=== PATIENT | male | born 1965 | race Caucasian/White ===

== ENCOUNTER 2019-10-13 19:12 | Inpatient (IN) | payer BC, SELFPAY ==
--- NOTE | 2019-10-13 20:56 | RAD REPORT ---
EXAM DESCRIPTION: RAD - Femur Left - 10/13/2019 8:48 pm CLINICAL HISTORY: Fall, left hip pain COMPARISON: None. FINDINGS: Left femoral head and neck findings are separately detailed. Below the lesser trochanter f emur is intact. No knee joint acute finding. No air or foreign body in the soft tissues. IMPRESSION: Below the lesser trochanter level the femur is intact. Proximal femur is separately detailed.
--- NOTE | 2019-10-13 20:56 | RAD REPORT ---
EXAM DESCRIPTION: RAD - Pelvis - 10/13/2019 8:17 pm CLINICAL HISTORY: Fall, pelvic pain, hip pain COMPARISON: None. TECHNIQUE: AP imaging of the pelvis was obtained. FINDINGS: No fracture of the bony pelvis. SI joints and pubic symphysis show no suspicious findings. Lower lumbar degenerative change present. Left hip findings are separately detailed. IMPRESSION: No fracture of the bony pelvis. Left femur finding separately detailed.
--- NOTE | 2019-10-13 20:58 | RAD REPORT ---
EXAM DESCRIPTION: RAD - Hip Left 2 View - 10/13/2019 8:17 pm CLINICAL HISTORY: Fall, left hip pain COMPARISON: None. FINDINGS: AP and cross-table lateral views were obtained. Left femoral neck fracture is present. The neck is not optimally visualized to allow full assessment of the fracture pattern. No gross evidence for intertrochanteric involvement. No pathologic bone process. No significant soft tissue finding. IMPRESSION: Left femoral neck is fractured. Positioning does not allow optimal assessment of any pos sible intertrochanteric involvement.
--- NOTE | 2019-10-13 21:02 | ER ---
Nurse's Notes [facility] Name: Abdoul Ferguson Age: 54 yrs Sex: Male : 1965 Arrival Date: 10/13/2019 Time: 19:12 Bed 23 Private MD: Diagnosis: Fracture of unspecified part of neck of left femur Presentation: 10/13 19:13 Presenting complaint: EMS states: patient was walking when he fell on his left hip and mg2 hit the pavement. BP 188/120. Transition of care: patient was not received from another setting of care. Onset of symptoms was October 13, 2019. Risk Assessment: Do you want to hurt yourself or someone else? Patient reports no desire to harm self or others. Initial Sepsis Screen: Does the patient meet any 2 criteria? No. Patient's initial sepsis screen is negative. Does the patient have a suspected source of infection? No. Patient's initial sepsis screen is negative. Care prior to arrival: None. 19:13 Method Of Arrival: EMS: [facility] mg2 19:13 Acuity: BRUNA 3 mg2 Historical: - Allergies: 19:17 No Known Allergies; mg2 - Home Meds: 19:17 None [Active]; mg2 - PMHx: 19:17 None; mg2 - PSHx: 19:17 None; mg2 - Immunization history:: Flu vaccine is not up to date. - Social history:: Smoking status: Patient/guardian denies using tobacco, Patient uses alcohol, Patient/guardian denies using street drugs, IV drugs. - Ebola Screening: : No symptoms or risks identified at this time. Screenin:17 Abuse screen: Denies threats or abuse. Denies injuries from another. Nutritional mg2 screening: No deficits noted. Tuberculosis screening: No symptoms or risk factors identified. Fall Risk Fall in past 12 months (25 points). Assessment: 19:18 General: Appears in no apparent distress. comfortable, Behavior is calm, cooperative. mg2 Pain: Complains of pain in left hip Pain does not radiate. Pain currently is 7 out of 10 on a pain scale. Quality of pain is described as aching. Neuro: Level of Consciousness is awake, alert, obeys commands, Oriented to person, place, time, situation. Cardiovascular: Capillary refill < 3 seconds Patient's skin is warm and dry. Respiratory: Airway is patent Respiratory effort is even, unlabored, Respiratory pattern is regular, symmetrical. GI: No signs and/or symptoms were reported involving the gastrointestinal system. : No signs and/or symptoms were reported regarding the genitourinary system. EENT: No signs and/or symptoms were reported regarding the EENT system. Derm: Skin is intact, is healthy with good turgor, Skin is pink, warm \T\ dry. normal. Musculoskeletal: Circulation, motion, and sensation intact. Capillary refill < 3 seconds, Reports pain in left knee. 22:29 Reassessment: Nurse will call me back to receive the report. mg2 Vital Signs: 19:16 Pulse 79; Resp 18; Temp 97.8(O); Pulse Ox 100% on R/A; Weight 124.74 kg; Height 6 ft. 4 mg2 in. (193.04 cm); Pain 7/10; 19:17 BP 176 / 109; mg2 20:30 BP 170 / 78; Pulse 97; Resp 18; Temp 98; Pulse Ox 100% on R/A; mg2 21:30 BP 165 / 99; Pulse 89; Resp 18; Pulse Ox 100% on R/A; mg2 21:30 BP 170 / 100; Pulse 93; Resp 17; Pulse Ox 100% on R/A; mg2 19:16 Body Mass Index 33.47 (124.74 kg, 193.04 cm) mg2 ED Course: 19:12 Patient arrived in ED. mg2 19:15 Triage completed. mg2 19:16 Shelley Hernandez FNP is PHCP. nh 19:16 Milan Lott MD is Attending Physician. nh 19:16 Arm band placed on. mg2 19:25 Patient has correct armband on for positive identification. mg2 19:25 No provider procedures requiring assistance completed. mg2 20:01 Shin Araujo, RN is Primary Nurse. mg2 20:17 Hip Left 2 View XRAY In Process Unspecified. EDMS 20:17 Pelvis XRAY In Process Unspecified. EDMS 20:50 Femur Left XRAY In Process Unspecified. EDMS 20:58 Milan Lott MD is Hospitalizing Provider. nh 20:58 Milan Lott MD is Hospitalizing Provider. nh 21:00 Initial lab(s) drawn, by me, sent to lab. Inserted saline lock: 22 gauge in right tr5 antecubital area, using aseptic technique. 21:26 Chest Single View In Process Unspecified. EDMS 22:31 Patient admitted, IV remains in place. mg2 Administered Medications: No medications were administered Outcome: 21:01 Decision to Hospitalize by Provider. tx 23:05 Patient left the ED. mg2 Signatures: Dispatcher [employer] EDMS Shelley Hernandez, JIGMAKER JIGMAKER tx Shin Araujo RN RN mg2 Joshua Bryant RN RN tr5 Corrections: (The following items were deleted from the chart) 20:39 19:13 Acuity: BRUNA 4 mg2 mg2 22:31 19:25 Patient did not have IV access during this emergency room visit. mg2 mg2 22:32 21:30 Pulse 93bpm; Resp 17bpm; Pulse Ox 100% RA; mg2 mg2
--- NOTE | 2019-10-13 21:02 | EDPHYS ---
Physician Documentation [facility] Name: Abdoul Ferguson Age: 54 yrs Sex: Male : 1965 Arrival Date: 10/13/2019 Time: 19:12 Bed 23 Private MD: ED Physician Milan Lott HPI: 10/13 20:54 This 54 yrs old Male presents to ER via EMS with complaints of Hip Pain. nh 20:54 The patient or guardian reports decreased range of motion, deformity, an injury, pain. nh sustained from a fall, while walking, the left lower extremity is shortened, The patient is not able to ambulate. Patient is not able to bear weight. There is no radiation of the patient's discomfort. The complaints affect the left hip. Onset: The symptoms/episode began/occurred acutely, just prior to arrival. Modifying factors: The symptoms are alleviated by nothing, the symptoms are aggravated by any movement, weight bearing. Associated signs and symptoms: Loss of consciousness: the patient experienced no loss of consciousness. Severity of symptoms: At their worst the symptoms were moderate, just prior to arrival, in the emergency department the symptoms are unchanged. The patient has not experienced similar symptoms in the past. The patient has not recently seen a physician. Historical: - Allergies: 19:17 No Known Allergies; mg2 - Home Meds: 19:17 None [Active]; mg2 - PMHx: 19:17 None; mg2 - PSHx: 19:17 None; mg2 - Immunization history:: Flu vaccine is not up to date. - Social history:: Smoking status: Patient/guardian denies using tobacco, Patient uses alcohol, Patient/guardian denies using street drugs, IV drugs. - Ebola Screening: : No symptoms or risks identified at this time. ROS: 20:54 Constitutional: Negative for fever, chills, and weight loss, Eyes: Negative for injury, nh pain, redness, and discharge, ENT: Negative for injury, pain, and discharge, Neck: Negative for injury, pain, and swelling, Cardiovascular: Negative for chest pain, palpitations, and edema, Respiratory: Negative for shortness of breath, cough, wheezing, and pleuritic chest pain, Abdomen/GI: Negative for abdominal pain, nausea, vomiting, diarrhea, and constipation, Back: Negative for injury and pain, : Negative for injury, bleeding, discharge, and swelling, Skin: Negative for injury, rash, and discoloration, Neuro: Negative for headache, weakness, numbness, tingling, and seizure, Psych: Negative for depression, anxiety, suicide ideation, homicidal ideation, and hallucinations, Allergy/Immunology: Negative for hives, rash, and allergies. 20:54 MS/extremity: Positive for injury or acute deformity, pain, swelling, tenderness. Exam: 20:54 Constitutional: This is a well developed, well nourished patient who is awake, alert, nh and in no acute distress. Head/Face: Normocephalic, atraumatic. Eyes: Pupils equal round and reactive to light, extra-ocular motions intact. Lids and lashes normal. Conjunctiva and sclera are non-icteric and not injected. Cornea within normal limits. Periorbital areas with no swelling, redness, or edema. ENT: Nares patent. No nasal discharge, no septal abnormalities noted. Tympanic membranes are normal and external auditory canals are clear. Oropharynx with no redness, swelling, or masses, exudates, or evidence of obstruction, uvula midline. Mucous membranes moist. Neck: Trachea midline, no thyromegaly or masses palpated, and no cervical lymphadenopathy. Supple, full range of motion without nuchal rigidity, or vertebral point tenderness. No Meningismus. Chest/axilla: Normal chest wall appearance and motion. Nontender with no deformity. No lesions are appreciated. Cardiovascular: Regular rate and rhythm with a normal S1 and S2. No gallops, murmurs, or rubs. Normal PMI, no JVD. No pulse deficits. Respiratory: Lungs have equal breath sounds bilaterally, clear to auscultation and percussion. No rales, rhonchi or wheezes noted. No increased work of breathing, no retractions or nasal flaring. Abdomen/GI: Soft, non-tender, with normal bowel sounds. No distension or tympany. No guarding or rebound. No evidence of tenderness throughout. Back: No spinal tenderness. No costovertebral tenderness. Full range of motion. Skin: Warm, dry with normal turgor. Normal color with no rashes, no lesions, and no evidence of cellulitis. Neuro: Awake and alert, GCS 15, oriented to person, place, time, and situation. Cranial nerves II-XII grossly intact. Motor strength 5/5 in all extremities. Sensory grossly intact. Cerebellar exam normal. Normal gait. 20:54 Musculoskeletal/extremity: Extremities: grossly normal except: noted in the left hip: pain, ROM: limited active range of motion due to pain, in the left hip, Circulation is intact in all extremities. Sensation intact. Weight bearing: is unable to bear weight. Vital Signs: 19:16 Pulse 79; Resp 18; Temp 97.8(O); Pulse Ox 100% on R/A; Weight 124.74 kg; Height 6 ft. 4 mg2 in. (193.04 cm); Pain 7/10; 19:17 BP 176 / 109; mg2 20:30 BP 170 / 78; Pulse 97; Resp 18; Temp 98; Pulse Ox 100% on R/A; mg2 21:30 BP 165 / 99; Pulse 89; Resp 18; Pulse Ox 100% on R/A; mg2 21:30 BP 170 / 100; Pulse 93; Resp 17; Pulse Ox 100% on R/A; mg2 19:16 Body Mass Index 33.47 (124.74 kg, 193.04 cm) mg2 MDM: 19:16 Patient medically screened. nh 20:54 Data reviewed: vital signs, nurses notes, lab test result(s), radiologic studies, I nh have discussed the patient's presentation/case with the attending Emergency Department Physician; and as a result, I will admit patient. Counseling: I had a detailed discussion with the patient and/or guardian regarding: the historical points, exam findings, and any diagnostic results supporting the discharge/admit diagnosis, lab results, radiology results, the need for further work-up and treatment in the hospital. Physician consultation: Hossein Hidalgo MD was called at 20:57, was contacted at 20:57, and will see patient tomorrow, would like admission per Dr. Lolis Krishna MD. 10/13 20:41 Order name: CBC with Diff mt 10/13 20:41 Order name: CMP mt 10/13 20:49 Order name: PT-INR mt 10/13 20:49 Order name: Ptt, Activated mt 10/13 21:21 Order name: Manual Differential EDMS 10/13 22:07 Order name: CBC with Automated Diff EDMS 10/13 22:07 Order name: CBC with Automated Diff EDMS 10/13 22:07 Order name: Comprehensive Metabolic Panel EDMS 10/13 22:07 Order name: Comprehensive Metabolic Panel EDMS 10/13 22:07 Order name: Magnesium EDMS 10/13 22:07 Order name: Magnesium EDMS 10/13 22:07 Order name: Phosphorus EDMS 10/13 22:08 Order name: Phosphorus EDMS 10/13 22:08 Order name: Protime (+INR) EDMS 10/13 19:22 Order name: Hip Left 2 View XRAY mt 10/13 19:22 Order name: Pelvis XRAY mt 10/13 19:22 Order name: Femur Left XRAY mt 10/13 20:41 Order name: IV Saline Lock; Complete Time: 21:01 mt 10/13 20:49 Order name: EKG - Nurse/Tech; Complete Time: 21:13 mt 10/13 20:54 Order name: Chest Single View EDMS 10/13 22:07 Order name: CONS Physician Consult EDMS 10/13 22:07 Order name: NPO EDMS 10/13 22:08 Order name: Protime (+INR) EDMS 10/13 22:08 Order name: PTT, Activated Partial Thromb EDMS 10/13 22:08 Order name: PTT, Activated Partial Thromb EDMS 10/13 22:09 Order name: Type and Screen EDMS 10/13 22:09 Order name: Type and Screen EDMS 10/13 22:41 Order name: Urine Dipstick--Ancillary (enter results) ar5 Administered Medications: No medications were administered Disposition: 10/14 07:26 Co-signature as Attending Physician, Milan Lott MD I agree with the assessment and kdr plan of care. Disposition: 10/13/19 21:01 Hospitalization ordered by Milan Lott for Observation. Preliminary diagnosis is Fracture of unspecified part of neck of left femur. - Bed requested for Telemetry/MedSurg (observation). - Status is Observation. mg2 - Condition is Stable. - Problem is new. - Symptoms are unchanged. UTI on Admission? No Signatures: Dispatcher [employer] EDMO Michelle Ye, RN RN Milan Lott MD MD [facility] Shelley Hernandez, X RAY PHYSICIAN X RAY PHYSICIAN mt Shin Araujo RN RN mg2 Corrections: (The following items were deleted from the chart) 10/13 20:54 20:50 Chest Pa And Lat (2 Views)+[email or web address].[email or web address] ordered. EDMS EDMS 22:10 21:01 Hospitalization Ordered by Milan Lott MD for Observation. Preliminary mw diagnosis is Fracture of unspecified part of neck of left femur. Bed requested for Telemetry/MedSurg (observation). Status is Observation. Condition is Stable. Problem is new. Symptoms are unchanged. UTI on Admission? No. nh 23:05 22:10 10/13/2019 21:01 Hospitalization Ordered by Milan Lott MD for Observation. mg2 Preliminary diagnosis is Fracture of unspecified part of neck of left femur. Bed requested for Telemetry/MedSurg (observation). Status is Observation. Condition is Stable. Problem is new. Symptoms are unchanged. UTI on Admission? No. mw
[2019-10-13 21:18] LABS: Protime INR 1.35
[2019-10-13 21:19] LABS: Absolute Lymphocytes (CBC) 1.6 K/uL (0.7-4.9); Basophils % 0.2 % (0-1.3); Hematocrit 28.5 % (39.6-49.0); Lymphocytes % 17.5 % (15.3-44.8); MPV 8.4 fL (7.6-11.3); RBC Red Blood Cell Count 4.47 M/uL (4.33-5.43)
[2019-10-13 21:28] LABS: Albumin 4.2 g/dL (3.4-5.0); Bilirubin Total 0.4 mg/dL (0.2-1.0); Potassium 3.4 mmol/L (3.5-5.1); Protein, Total 7.7 g/dL (6.4-8.2)
[2019-10-13 21:43] LABS: Anisocytosis 1+; Blood Morphology Comment NOTED (NOT SEEN); Hypochromasia 2+; Platelet Estimate ADEQ
[2019-10-13] MEDS ORDERED: ACETAMINOPHEN 500 MG TAB PO PRN (22:04)
[2019-10-13] MEDS ORDERED: ONDANSETRON 4 MG/2 ML VIAL IV PRN (22:04)
[2019-10-13 22:43] LABS: Urine Blood NEGATIVE (NEG); Urine Glucose NEGATIVE (NEG); Urine Protein NEGATIVE (NEG); Urine Specific Gravity 1.015 (1.005-1.030)
[2019-10-13] MEDS ORDERED: NA CHLORIDE 0.9% 1,000 ML IV SCH (23:00)
[2019-10-13 23:37] VITALS: BMI 32.2
[2019-10-14] MEDS: METOPROLOL TARTRATE 5 MG/5 ML INJ IV SCH ×5 (01:05→07:00)
[2019-10-14] MEDS ORDERED: CEFAZOLIN/SWI 1gm 1 GM/10 ML SYR ONE (01:14)
[2019-10-14] MEDS ORDERED: CEFAZOLIN SODIUM 1 GM/VIAL ONE (01:15)
[2019-10-14] MEDS ORDERED: NA CHLORIDE 0.9% 100 ML ONE (01:24)
[2019-10-14 02:28] LABS: Protime INR 1.21
[2019-10-14 02:34] LABS: RBC Red Blood Cell Count 4.01 M/uL (4.33-5.43)
[2019-10-14 02:36] LABS: Albumin 3.7 g/dL (3.4-5.0); Bilirubin Total 0.4 mg/dL (0.2-1.0); Magnesium 1.9 mg/dL (1.8-2.4); Phosphorus 3.4 mg/dL (2.5-4.9); Potassium 3.8 mmol/L (3.5-5.1)
[2019-10-14 02:37] LABS: Hematocrit 25.8 % (39.6-49.0); MPV 8.6 fL (7.6-11.3); RBC Red Blood Cell Count 4.09 M/uL (4.33-5.43)
[2019-10-14 02:52] LABS: Anisocytosis 1+; Blood Morphology Comment NOTED (NOT SEEN); Hypochromasia 2+; Platelet Estimate ADEQ; Polychromasia SLIGHT
[2019-10-14 03:01] LABS: Ferritin 4.9 ng/mL (26-388)
[2019-10-14] MEDS: HYDROMORPHONE HCL 1 MG/ML INJ IV PRN ×6 (03:10→23:42)
[2019-10-14] MEDS ORDERED: NA CHLORIDE 0.9% 250 ML ONE (04:22)
[2019-10-14] MEDS: CEFAZOLIN/NS 1gm 1 GM/50 ML BAG IVPB SCH ×2 (06:00)
[2019-10-14] MEDS ORDERED: METOPROLOL TARTRATE 5 MG/5 ML INJ IV SCH ×3 (07:00→08:00)
--- NOTE | 2019-10-14 07:44 | P.HP ---
Certification for Inpatient Patient admitted to: Inpatient With expected LOS: >2 Midnights Patient will require the following post-hospital care: None Practitioner: I am a practitioner with admitting privileges, knowledge of patient current condition, hospital course, and medical plan of care. Services: Services provided to patient in accordance with Admission requirements found in Title 42 Section 412.3 of the Code of Federal Regulations Patient History Date of Service: 10/13/19 Reason for admission: Status post left hip fracture/iron deficiency anemia History of Present Illness: Patient is a 54-year-old gentleman who came to the hospital after falling when getting out of his truck. Patient states that his foot slipped any landed on his hip. He started having pain. He was unable to get himself up. EMS was called he was brought to our hospital. In the ER he was found have a hemoglobin of 8.3. Patient denies any signs of bleeding. Patient also denies any chest pain or shortness of breath. He is very active and he has been in good state of health. He has never had any cardiac issues. She will be admitted to the hospital for possible hip surgery. Will repeat his hemoglobin and if his hemoglobin is stable then we will proceed with surgery. This does not seem like it is an active bleed as hemodynamically he is very stable. His blood pressure is elevated. He will need blood pressure control as well. Allergies No Known Allergies Allergy (Unverified 10/13/19 22:54) Home Medications: NK [No Home Meds] 10/13/19 - Past Medical/Surgical History Has patient received pneumonia vaccine in the past: No Diabetic: No Past Medical History: Patient denies medical history Past Surgical History: Patient denies surgical history - Family History Father Family History: Reviewed- Non-Contributory - Social History Smoking Status: Never smoker Alcohol use: No CD- Drugs: No Caffeine use: Yes Review of Systems 10-point ROS is otherwise unremarkable Physical Examination - Vital Signs Temperature: 99.0 F Blood Pressure: 183/101 Pulse: 88 Respirations: 18 Pulse Ox (%): 94 - Physical Exam General: Alert, In no apparent distress, Oriented x3 HEENT: Atraumatic, PERRLA, Mucous membr. moist/pink, EOMI, Sclerae nonicteric Neck: Supple, 2+ carotid pulse no bruit, No LAD, Without JVD or thyroid abnormality Respiratory: Clear to auscultation bilaterally, Normal air movement Cardiovascular: Regular rate/rhythm, Normal S1 S2, No murmurs Gastrointestinal: Normal bowel sounds, Soft and benign, Non-distended, No tenderness Musculoskeletal: No clubbing, No swelling, No contractures, No tenderness Integumentary: No rashes Neurological: Normal speech, Normal tone, Sensation intact, Cranial nerves 3-12 intact, Normal affect, Abnormal gait, Abnormal strength (Left hip-barely is able to move it. We have tried to I encouraged him to keep it immobile) Lymphatics: No axilla or inguinal lymphadenopathy - Studies Laboratory Data (last 24 hrs) 10/13/19 21:05: PT 15.8 H, INR 1.35, APTT 29.6 10/13/19 20:56: Sodium 135 L, Potassium 3.4 L, BUN 9, Creatinine 0.96, Glucose 113 H, Total Bilirubin 0.4, AST 18, ALT 18, Alkaline Phosphatase 61 10/13/19 20:56: WBC 9.4, Hgb 8.3 L, Hct 28.5 L, Plt Count 227 Assessment & Plan - Problems (Diagnosis) (1) Left displaced femoral neck fracture Current Visit: Yes Status: Acute (2) Uncontrolled hypertension Current Visit: Yes Status: Acute (3) Iron deficiency anemia Current Visit: Yes Status: Acute - Plan Plan: 1. Orthopedic evaluation 2. Repeat H&H 3. Anemia studies 4. IV Lopressor for strict blood pressure control 5. Patient with no chest pain or shortness of breath. His performance status is excellent. He is very active and asymptomatic. His EKG does show a left bundle-branch. He is anemic so will correct this but other than that he should be medically stable and low risk for any cardiopulmonary complications during surgery. Benefits of surgery outweigh the risks at this time. 6. GI and DVT prophylaxis Discharge Plan: Home Plan to discharge in: Greater than 2 days - Advance Directives Does patient have a Living Will: No Does patient have a Durable POA for Healthcare: No - Code Status/Comfort Care Code Status Assessed: Yes Code Status: Full Code Critical Care: No Time Spent Managing PTS Care (In Minutes): 55
--- NOTE | 2019-10-14 07:51 | P.PN ---
Date of Service: 10/14/19 Repeat hemoglobin came back at 7.4. Will transfuse 2 units of packed red blood cells. Patient with iron deficiency and B12 deficiency. Will get a CT of the abdomen and pelvis to further review any clinical findings to indicate why he may be anemic. There is some concern for a pathologic fracture as well.
[2019-10-14] MEDS ORDERED: CYANOCOBALAMIN 1000MCG/ML INJ IM ONE (08:00)
[2019-10-14] MEDS: CYANOCOBALAMIN 1,000 MCG TAB PO SCH (09:00)
[2019-10-14] MEDS: CEFAZOLIN/SWI 1gm 1 GM/10 ML SYR IVP SCH ×4 (09:10→23:43)
--- NOTE | 2019-10-14 09:29 | RAD REPORT ---
EXAM DESCRIPTION: RAD - Chest Single View - 10/13/2019 9:29 pm CLINICAL HISTORY: CHEST PAIN Chest pain. COMPARISON: Hip Left 2 View dated 10/13/2019 FINDINGS: Portable technique limits examination quality. The lungs are grossly clear. The heart is mildly enlarged in size. A hiatal hernia is likely present.
[2019-10-14 09:33] LABS: Hematocrit 26.7 % (39.6-49.0)
[2019-10-14] MEDS ORDERED: INFLUENZA VACCINE (for 3y+) 0.5 ML DOSE IMVAC ONE (10:00)
--- NOTE | 2019-10-14 11:23 | P.PN ---
Subjective Date of Service: 10/14/19 Primary Care Provider: none Chief Complaint: Status post left hip fracture/iron deficiency anemia Subjective: Other (Patient doing well. Pain under control.) Physical Examination - Vital Signs Temperature: 96.9 F Blood Pressure: 180/100 Pulse: 78 Respirations: 18 Pulse Ox (%): 96 - Physical Exam General: Alert, In no apparent distress, Oriented x3, Cooperative HEENT: Atraumatic Neck: Supple Respiratory: Clear to auscultation bilaterally, Normal air movement Cardiovascular: Normal pulses, Regular rate/rhythm Gastrointestinal: Normal bowel sounds, Soft and benign, Non-distended Musculoskeletal: No tenderness Integumentary: No erythema, No warmth, No cyanosis Neurological: Normal speech, Normal strength at 5/5 x4 extr, Normal tone, Normal affect - Studies Laboratory Data (last 24 hrs) 10/13/19 21:05: PT 15.8 H, INR 1.35, APTT 29.6 10/13/19 20:56: Sodium 135 L, Potassium 3.4 L, BUN 9, Creatinine 0.96, Glucose 113 H, Total Bilirubin 0.4, AST 18, ALT 18, Alkaline Phosphatase 61 10/13/19 20:56: WBC 9.4, Hgb 8.3 L, Hct 28.5 L, Plt Count 227 Medications List Reviewed: Yes Assessment & Plan Discharge Plan: Other (Inpatient rehab) Plan to discharge in: Greater than 2 days Physician Review Additional Text: Impression: Fall leading to left femur fracture Hypertension, uncontrolled Suspect chronic anemia with iron and B12 deficiency Suspect GERD with noted hiatal hernia on x-ray Obesity, BMI 32 Plan: Fall leading to left femur fracture: Case discussed with orthopedics. Will hold planned surgery today due to anemia. Patient will receive 2 units of packed red blood cells. After 1 unit of blood hemoglobin around 8.0. Will continue to monitor hemoglobin closely. Patient is iron and B12 deficient likely chronic. CT scan ordered of the abdomen to further evaluate. Patient likely with underlying chronic GERD. Hiatal hernia noted on x-ray. Will start PPI. Cardiology consulted for cardiac clearance. Will keep the patient NPO after midnight as surgery is likely anticipated for tomorrow. Patient would benefit with inpatient rehab after surgery. Will monitor hemoglobin closely. If this continues to be a problem will need to consult GI. No GI coverage today. Patient will require EGD and colonoscopy in the future. Will monitor patient closely. Hypertension, uncontrolled: Will add blood pressure medication for better control. Suspect chronic anemia with iron and B12 deficiency: Patient will get transfused. After 1 unit hemoglobin around 8. Patient to get 1 more unit. Continue to monitor hemoglobin closely. Will start IV iron and B12 supplementation. Suspect GERD with noted hiatal hernia on x-ray: CT scan ordered. Will further address. Will start PPI. Obesity, BMI 32: Will address lifestyle modification education. Time Spent Managing Pts Care (In Minutes): 55
--- NOTE | 2019-10-14 12:33 | RAD REPORT ---
EXAM DESCRIPTION: CTAbdomen Pelvis W Contrast - 10/14/2019 12:25 pm CLINICAL HISTORY: Abdominal pain. iron deficiency anemia/concern for pathologic fx COMPARISON: Hip Left 2 View dated 10/13/2019; Femur Left dated 10/13/2019 TECHNIQUE: Biphasic CT imaging of the abdomen and pelvis was performed with 100 ml non-ionic IV cont rast. All CT scans are performed using dose optimization technique as appropriate and may include automated exposure control or mA/KV adjustment according to patient size. FINDINGS: Linear opacities in both lung bases likely represent subsegmental atelectasis.Moderate to large hiatal hernia. Mild fatty liver. Small low-density lesion is seen in the inferior right lobe measuring 13 mm. No int ra or extrahepatic biliary dilatation. The spleen, adrenal glands and kidneys are within normal limit s. Pancreas is grossly unremarkable. No pancreatic ductal dilatation. No bowel obstruction, free air, free fluid or abscess. The appendix is normal. No evidence of signi ficant lymphadenopathy. Fracture proximal left femur is identified. IMPRESSION: Proximal left femur fracture. No aggressive finding in the abdomen or pelvis. Moderate hiatal hernia with atelectasis in both lung bases.
[2019-10-14] MEDS: METOPROLOL TARTRATE 5 MG/5 ML INJ IV PRN (12:43)
[2019-10-14] MEDS: SOD FERRIC GLUC COMPLX/SUCROSE 125 MG in NA CHLORIDE 0.9% 100 ML IV SCH (12:43)
[2019-10-14] MEDS: NA CHLORIDE 0.9% 1,000 ML IV SCH (12:43)
[2019-10-14] MEDS: FUROSEMIDE 20 MG/ 2ML VIAL IV SCH (18:19)
--- NOTE | 2019-10-14 18:46 | CON ---
Date of Consultation: 10/14/2019 Reason For Consultation: Left hip pain. History Of Present Illness: Abdoul is a 54-year-old male who presented to the ER last night with left hip pain after sustaining a fall onto his left side. In the emergency room, he had x-rays, which dem onstrated a displaced left femoral neck fracture, also noted to have profound anemia with hemoglobin of 8. He was admitted to the hospitalist service and was consulted with further evaluation and treat ment. Denies any other musculoskeletal complaints. At this time, he denies any prior left hip pain. He denies any use of assistive devices prior to the fall. He denies any prior hematochezia or hemo ptysis. He does report occasional dark stools which he thought was secondary to drinking coffee. Past Medical History: Includes hypertension. Past Surgical History: None. Medications: Per medication reconciliation. Physical Examination: General: No apparent distress. HEENT: Normocephalic, atraumatic. Neck: Supple. Cardiovascular: Brisk cap refill to all digits. Chest: Nonlabored breathing. Abdomen: Nondistended. Psychiatric: Responsive to exam. Musculoskeletal: Left lower extremity pain with range of motion of the left hip. Tenderness to palp ation of the left hip. No tenderness to palpation of the knee or ankle. Neurovascularly intact dist ally. Right lower extremity functional range of motion without pain. No gross deformities. No obvi ous dislocations. Bilateral upper extremities functional range of motion. No pain. No gross deform ities. No obvious dislocations. Diagnostic Studies: X-rays: X-rays in the cast demonstrated a displaced left femoral neck fracture. Assessment And Plan: Mr. Ferguson is a 54-year-old male with a left displaced femoral neck fracture an d recently diagnosed anemia. Patient underwent blood transfusion today secondary to repeat hemoglobi n below 8. We will follow up his hemoglobin and after transfusion, he had a CAT scan of his abdomen which was negative for any significant acute abnormalities. Once cleared by the medical team and Car diology, we will proceed with left hip hemiarthroplasty. I discussed with the patient at length risk s and benefits associated with the procedure and he expressed understanding. We will proceed with le ft hip hemiarthroplasty once cleared. CV/MODL Voice ID: [id number] Report ID: [id number]
[2019-10-14 19:25] LABS: Hematocrit 28.2 % (39.6-49.0)
[2019-10-14] MEDS: lisinopriL 10 MG TAB PO SCH (20:28)
[2019-10-14] MEDS: METOPROLOL TAR 50 MG TAB PO SCH (20:28)
--- NOTE | 2019-10-14 23:58 | CON ---
Patient admitted on 10/13/[address] Au. Reason For Consultation: Cardiac clearance for hip fracture. History Of Present Illness: Mr. Ferguson is a 54-year-old white male. He has no previous past medical history whatsoever, came in after a fall, was found to have a fracture. There is a plan for surgery in the morning. Patient denied syncope. He denied any chest pain, shortness of breath, nausea, vom iting, diaphoresis, PND, orthopnea, pedal edema, palpitations, or syncope. Past Medical History: Negative. Allergies: NONE. Review of Systems: Negative. Social History: Negative. Family History: Negative. Medications: At home are none. Physical Examination: Vital Signs: Showed blood pressure is 195/106. HEENT: Negative. Neck: Supple without any lymphadenopathy, JVD, thyromegaly, or bruit. Chest: Clear to auscultation and percussion. Cardiac: Revealed a regular rhythm and rate without any murmurs, gallops, or rubs. Abdomen: Benign. Extremities: Revealed no clubbing, cyanosis, or edema. Diagnostic Data: Showed a hemoglobin of 7.4, otherwise everything was normal. Impression And Plan: This is a patient with no previous past medical history but he obviously has si gnificant hypertension. He is now on lisinopril and is getting metoprolol 5 mg IV q.6 hours as neede d, also Lasix had been added. He is on Lovenox for DVT prophylaxis. This is being held because of h is severe anemia. Apparently, he has no history of anemia. I did not know he was anemic, but his he moglobin is 7.4. He is receiving blood transfusion as well as iron. His workup is consistent with i milka deficiency anemia. From a cardiac standpoint, he is clear. His EKG is unremarkable. He has no clinical evidence of CHF, CAD by history or by examination. I will be available for questions if the need arises but his blood pressure needs to be better controlled, his hemoglobin need to improve. Jameel e needs to have an anemia workup which include Hematology consult and definitely a colonoscopy and an endoscopy down the road. CAR/LEV Voice ID: [id number] Report ID: [id number]
[2019-10-15] MEDS ORDERED: METOPROLOL TARTRATE 5 MG/5 ML INJ IV STA (02:12)
[2019-10-15] MEDS: HYDROMORPHONE HCL 1 MG/ML INJ IV PRN ×2 (04:55→18:47)
[2019-10-15] MEDS: METOPROLOL TARTRATE 5 MG/5 ML INJ IV PRN (05:00)
[2019-10-15] MEDS: CEFAZOLIN/SWI 1gm 1 GM/10 ML SYR IVP SCH ×2 (05:25→12:00)
[2019-10-15 06:04] LABS: Potassium 3.7 mmol/L (3.5-5.1)
[2019-10-15] MEDS ORDERED: KCL 20 MEQ/100 mL IVPB 20 MEQ/100 ML BAG IV SCH (07:00)
[2019-10-15 07:13] LABS: Absolute Lymphocytes (CBC) 0.8 K/uL (0.7-4.9); Basophils % 0.6 % (0-1.3); Hematocrit 27.8 % (39.6-49.0); Lymphocytes % 8.5 % (15.3-44.8); MPV 8.5 fL (7.6-11.3)
[2019-10-15] MEDS: PANTOPRAZOLE 40MG TABLET PO SCH (07:30)
[2019-10-15] MEDS: NA CHLORIDE 0.9% 1,000 ML IV SCH (08:00)
[2019-10-15] MEDS: METOPROLOL TAR 50 MG TAB PO SCH ×3 (08:04→20:41)
[2019-10-15] MEDS: CYANOCOBALAMIN 1,000 MCG TAB PO SCH (08:05)
[2019-10-15] MEDS ORDERED: Ringers Lactate 1,000 ML IV ONE ×2 (08:40→11:13)
[2019-10-15] MEDS ORDERED: CEFAZOLIN/SWI 1gm 1 GM/10 ML SYR ONE (08:51)
[2019-10-15] MEDS ORDERED: BUPIVACA 0.5%/EPI 0.0005%/PF 30 ML VIAL ONE (08:55)
[2019-10-15] MEDS: lisinopriL 10 MG TAB PO SCH ×3 (09:00→20:40)
[2019-10-15] MEDS ORDERED: METOPROLOL TARTRATE 5 MG/5 ML INJ IV ONE (09:00)
[2019-10-15] MEDS ORDERED: TRANEXAMIC ACID 1,000 MG in NA CHLORIDE 0.9% 50 ML IV ONE ×4 (09:00)
[2019-10-15] MEDS ORDERED: SUCCINYLCHOLINE 20 MG/ML (10 ML) IV ONE (09:08)
[2019-10-15] MEDS ORDERED: PROPOFOL 200 MG/20 ML VIAL IV ONE (09:10)
[2019-10-15] MEDS ORDERED: FENTANYL CITR 250 MCG/5 ML ONE (09:10)
[2019-10-15] MEDS ORDERED: ROCURONIUM 50 MG/5 ML VIAL IV ONE ×2 (09:10→10:54)
[2019-10-15] MEDS ORDERED: MIDAZOLAM HCL 2 MG/2 ML INJ ONE (09:11)
--- NOTE | 2019-10-15 09:42 | P.PN ---
Subjective Date of Service: 10/15/19 Primary Care Provider: none Chief Complaint: Status post left hip fracture/iron deficiency anemia Subjective: Other (Patient doing well. Patient NPO for anticipated surgery today.) Physical Examination - Vital Signs Temperature: 96.9 F Blood Pressure: 160/100 Pulse: 74 Respirations: 18 Pulse Ox (%): 94 - Physical Exam General: Alert, In no apparent distress, Oriented x3, Cooperative HEENT: Atraumatic Neck: Supple Respiratory: Clear to auscultation bilaterally, Normal air movement Cardiovascular: Normal pulses, Regular rate/rhythm Gastrointestinal: Normal bowel sounds, No rebound, No guarding Musculoskeletal: Other (Patient reports some pain to the hip this morning.) Integumentary: Other (No significant edema noted.) - Studies Medications List Reviewed: Yes Assessment & Plan Discharge Plan: Home Plan to discharge in: Greater than 2 days Physician Review Additional Text: Impression: Fall leading to left femur fracture Hypertension, uncontrolled Suspect chronic anemia with iron and B12 deficiency Suspect GERD with noted hiatal hernia on CT Obesity, BMI 32 Plan: Fall leading to left femur fracture: Patient has been cleared by cardiology. Case discussed with orthopedics yesterday. Hemoglobin al stable after 2 units of blood given. Anticipate surgery today. CT scan of the abdomen revealed no significant GI related issue. Hiatal hernia was noted on PPI. Will continue to monitor hemoglobin closely. Hypertension, uncontrolled: Lisinopril added for better blood pressure control. Will continue to adjust medication. Suspect chronic anemia with iron and B12 deficiency: Patient has received 2 units of blood. Hemoglobin now stable. Will continue with IV iron and B12 supplementation. Patient will require EGD and colonoscopy as an outpatient with GI workup. Suspect GERD with noted hiatal hernia on CT: CT revealed hiatal hernia. PPI started. Obesity, BMI 32: Will address lifestyle modification education. Time Spent Managing Pts Care (In Minutes): 55
[2019-10-15] MEDS ORDERED: TRAMADOL HCL 50 MG TAB PO PRN (09:44)
[2019-10-15] MEDS ORDERED: NEOSTIGMINE 1 MG/ML -5 ML ONE (11:33)
[2019-10-15] MEDS ORDERED: GLYCOPYRROLATE 0.2 MG/ML SYR ONE (11:46)
--- NOTE | 2019-10-15 11:49 | P.BOP ---
Preoperative diagnosis: left femoral neck fracture Postoperative diagnosis: same Primary procedure: left hip hemiarthroplasty [place]: NONE,NONE Estimated blood loss: 100 cc Specimen: left femoral head Findings: see dictation Anesthesia: General Complications: None Implants: size 14 Biomet RPP press fit stem, Size 55 Bipolar shell, 28mm + 3 head Fluids & blood products: per anesthesia record Transferred to: Recovery Room Condition: Good
[2019-10-15] MEDS ORDERED: DOCUSATE NA 100 MG CAP PO PRN (12:02)
[2019-10-15] MEDS ORDERED: KETOROLAC 30 MG/ML INJ ONE (12:17)
[2019-10-15] MEDS: SOD FERRIC GLUC COMPLX/SUCROSE 125 MG in NA CHLORIDE 0.9% 100 ML IV SCH (13:19)
[2019-10-15] MEDS: CEFAZOLIN/SWI 2gm 2 GM/20 ML SYR IVP SCH ×2 (13:20→18:00)
--- NOTE | 2019-10-15 14:33 | RAD REPORT ---
EXAM DESCRIPTION: RAD - Pelvis - 10/15/2019 1:45 pm CLINICAL HISTORY: Left bipolar prosthesis placement COMPARISON: Pre-surgical imaging October 13 FINDINGS: Bipolar prosthesis in place left hip joint. No suspicious or unexpected finding.
--- NOTE | 2019-10-15 14:34 | RAD REPORT ---
EXAM DESCRIPTION: RAD - Hip Left 2 View - 10/15/2019 1:45 pm CLINICAL HISTORY: Left bipolar prosthesis placement, surgical repair of femur fracture COMPARISON: Pre-surgical October 13 imaging FINDINGS: AP and cross-table lateral views were obtained. Bipolar left hip prosthesis has been placed. No suspicious or unexpected bone or implant finding.
[2019-10-16] MEDS: HYDROMORPHONE HCL 1 MG/ML INJ IV PRN (00:44)
[2019-10-16] MEDS: CEFAZOLIN/SWI 2gm 2 GM/20 ML SYR IVP SCH (01:41)
[2019-10-16 05:54] LABS: Magnesium 1.9 mg/dL (1.8-2.4); Potassium 3.7 mmol/L (3.5-5.1)
[2019-10-16 05:57] LABS: Absolute Lymphocytes (CBC) 0.4 K/uL (0.7-4.9); Hematocrit 25.2 % (39.6-49.0); Lymphocytes % 5.2 % (15.3-44.8); MPV 8.6 fL (7.6-11.3); RBC Red Blood Cell Count 3.82 M/uL (4.33-5.43)
[2019-10-16] MEDS: NA CHLORIDE 0.9% 1,000 ML IV SCH (06:44)
[2019-10-16] MEDS: SOD FERRIC GLUC COMPLX/SUCROSE 125 MG in NA CHLORIDE 0.9% 100 ML IV SCH (08:25)
[2019-10-16] MEDS: PANTOPRAZOLE 40MG TABLET PO SCH (08:26)
[2019-10-16] MEDS: CYANOCOBALAMIN 1,000 MCG TAB PO SCH (08:26)
[2019-10-16] MEDS: METOPROLOL TAR 50 MG TAB PO SCH ×2 (08:26→20:10)
[2019-10-16] MEDS: HYDROCODONE/APAP 7.5/325 MG TAB PO PRN ×2 (08:26→16:27)
[2019-10-16] MEDS: lisinopriL 10 MG TAB PO SCH ×2 (08:29→20:10)
--- NOTE | 2019-10-16 08:29 | OP ---
Date of Procedure: 10/15/2019 Surgeon: Hossein Hidalgo MD Preoperative Diagnosis: Left femoral neck fracture. Postoperative Diagnosis: Left femoral neck fracture. Procedure Performed: Left hip hemiarthroplasty. Anesthesia: General endotracheal. Fluids: Per Anesthesia record. Estimated Blood Loss: 100 mL. Complications: None. Specimens: Left femoral head. Implants: Size 40 Biomet standard press-fit stem, size 55 x 28 mm bipolar acetabular cup, and a size 28 mm head. Indication For Procedure: Abdoul is a 54-year-old male who presented to the ER after sustaining a fall to his left side and subsequent left hip pain and inability to bear weight. X-rays of his left hip demonstrated a left displaced femoral neck fracture. The patient was found to be anemic on initial l ab workup. He underwent CAT scan of his abdomen which was negative for any significant mass lesion. He underwent blood transfusion yesterday and today. Description Of Procedure: After informed consent was obtained, the patient was identified in the pre operative holding area. The left lower extremity was marked. The patient was taken back to the oper ative room and transferred to the operating room in supine fashion, placed under general endotracheal anesthesia. He was then placed in the right lateral decubitus position with his extremities well pa dded. An axillary roll was placed. The left lower extremity was then prepped and draped in usual st erile fashion. A time-out was identified. Correct patient and procedure were confirmed and identifi ed. Patient had received his preoperative prophylactic antibiotics. Left lower extremity was then p repped and draped in usual sterile fashion. Approximately, a curvilinear incision was mad e centered over the greater trochanter with posterior approach to the left hip. Dissection was taken down to the tensor fascia pavithra, which was split and divided proximally and distally. A Charnley ret ractor was then introduced. Blunt dissection was then taken down. The short external rotators were tagged with a #5 Ethibond and removed off the greater trochanter. Posterior capsule was then identif ied. A T-shaped capsulotomy was performed and the capsule was tagged. Hematoma was evacuated using suction. Corkscrew was then used to removed the femoral head. A size 55 mm acetabular shell was elo cted. Trial implant was then placed and there was good overall fit. Next, attention was taken to th e proximal femur. Remaining capsule was then debrided off the proximal femur and the sharp edges wer e rongeured off the proximal femur. Cookie cutter was first placed followed by canal binder __. Proximal femur was then reamed with 1 mm sequential reamer from a size 7 mm to size 14 mm reamer which was then broached from a size 7 mm to size 14 mm broach with good overall fit. Calcar planer was then placed to debride any remaining sharp edges of the proximal femur . Next, size +3 mm head and a 5 mm shell were then placed and reduces good overall fit slightly. The trial componen ts were then removed. The wound was then irrigated thoroughly with normal saline under pulse lavage. A final 40 mm stem implant was then placed and trial implants were selected. There was good overal l reduction of the head and neck. There was good overall stability and leg length. Trial head and n kalee were removed and the final 55 mm bipolar shell and then placed. It was reduced again with overall good leg length and stability was noted with range of motion. The wound was then irriga frankie thoroughly with normal saline. The capsule was approximated using #5 Ethibond. The short grade school teacher al rotators were tagged back to the greater trochanter using a tunnel. Tensor fascia pavithra was approximated using a 0 Vicryl in interrupted fashion followed by the superficial fascia was appr oximated using 0 Vicryl. Subcutaneous tissues were approximated using 2-0 Vicryl. Skin was approxim ated using a stapler. A sterile dressing was applied. Patient was placed in abduction pillow, awake emilia, and transferred to PACU in stable condition. Postoperative Plan: He will be weightbearing as tolerated on the left lower extremity and posterior hip precautions will be followed. Physical therapy will be consulted . KAZ/LEV Voice ID: [id number] Report ID: [id number]
[2019-10-16] MEDS ORDERED: POTASSIUM CL SA 10 MEQ TAB PO ONE (09:00)
--- NOTE | 2019-10-16 09:41 | EKG ---
Test Date: 2019-10-13 Test Time: 21:10:34 Teletypesetter Monitor: TR MEASUREMENT RESULTS: Intervals: Rate: 84 MD: 152 QRSD: 130 QT: 418 QTc: 493 Reed: P: 53 MD: 152 QRS: 83 T: 3 INTERPRETIVE STATEMENTS: Normal sinus rhythm Nonspecific intraventricular block T wave abnormality, consider inferior ischemia Abnormal ECG No previous ECG available for comparison Electronically Signed On 10-16-19 09:41:04 HAZARDOUS WASTE MATERIAL TECHNICIAN by Lucas Serrano
--- NOTE | 2019-10-16 12:56 | P.PN ---
Subjective Date of Service: 10/16/19 Primary Care Provider: none Chief Complaint: s/p left hip hemiarthroplasty getting transfused 2 Units PRBCs; PT after transfusion Physical Examination - Vital Signs Temperature: 98.8 F Blood Pressure: 148/72 Pulse: 83 Respirations: 18 Pulse Ox (%): 94 - Physical Exam General: Alert, In no apparent distress Musculoskeletal: Other (LLE: dressing c/d/i; +EHL/FHL/GSC/TA; sensation grossly intact over dorsal and plantar foot) - Studies Medications List Reviewed: Yes Assessment And Plan - Plan Abdoul is a 54 yo male s/p left hip hemiarthroplasty POD#1 -PT to mobilize; WBAT LLE; posterior hip precautions -expected postoperative blood loss anemia on top of chronic anemia; to be transfused 2 Units PRBCs today -lovenox for DVT prophylaxis on hold and continue with mechanical prophylaxis
[2019-10-16] MEDS: FUROSEMIDE 20 MG/ 2ML VIAL IV SCH (13:43)
[2019-10-16 13:59] LABS: Anisocytosis 2+; Blood Morphology Comment NOTED (NOT SEEN); Elliptocytes 1+; Hypochromasia 2+; Platelet Estimate ADEQ; Platelets, Giant FEW; Urine White Blood Cell Casts OK
--- NOTE | 2019-10-16 14:09 | P.PN ---
Subjective Date of Service: 10/16/19 Primary Care Provider: none Chief Complaint: s/p left hip hemiarthroplasty Subjective: Doing well Physical Examination - Vital Signs Temperature: 98.8 F Blood Pressure: 178/63 Pulse: 77 Respirations: 18 Pulse Ox (%): 94 - Physical Exam General: Alert, In no apparent distress, Oriented x3, Cooperative HEENT: Atraumatic Neck: Supple Respiratory: Clear to auscultation bilaterally, Normal air movement Cardiovascular: Normal pulses, Regular rate/rhythm Gastrointestinal: Normal bowel sounds, Soft and benign, Non-distended, No masses , No rebound, No guarding Integumentary: No warmth, No cyanosis Neurological: Normal speech, Normal strength at 5/5 x4 extr, Normal tone, Normal affect - Studies Medications List Reviewed: Yes Assessment & Plan Discharge Plan: Home Plan to discharge in: Greater than 2 days Physician Review Additional Text: Impression: Fall leading to left femur fracture status post left hip hemiarthroplasty postop day 1 Hypertension, uncontrolled Suspect chronic anemia with iron and B12 deficiency Suspect GERD with noted hiatal hernia on CT Obesity, BMI 32 Plan: Fall leading to left femur fracture status post left hip hemiarthroplasty postop day 1: Patient has done well post operatively. Will continue to monitor closely. Physical therapy to be initiated today. Hemoglobin slightly low. Will provide 1 more unit of blood to maintain hemoglobin above 7.5. Continue DVT prophylaxis. Case discussed with orthopedics. pupil personnel services director report patient without insurance. Patient reports that he has 10 feet of stairs to climb to get to his house. Will continue to work with physical therapy until patient is safe to be discharged. Since the patient will likely not have the support of home health/physical therapy. I will turn the service over to Dr. Cardozo tomorrow. I will go over the plan of care with her. Anticipate discharge likely in the next 3 5 days. Hypertension, uncontrolled: Continue to adjust medication for better blood pressure control. Lisinopril added yesterday along with adjustment of metoprolol.. Suspect chronic anemia with iron and B12 deficiency: Patient will get 1 more unit of blood. That translate stent 3 units of blood since admission. Will continue with IV iron and B12 supplementation. Will monitor closely. Maintain hemoglobin above 7.5. Patient will require EGD and colonoscopy as an outpatient with GI workup. Suspect GERD with noted hiatal hernia on CT: CT revealed hiatal hernia. Continue PPI. Obesity, BMI 32: Will address lifestyle modification education. Time Spent Managing Pts Care (In Minutes): 55
[2019-10-16 16:23] LABS: Hematocrit 27.5 % (39.6-49.0)
[2019-10-17] MEDS: METOPROLOL TARTRATE 5 MG/5 ML INJ IV PRN ×2 (01:29→10:00)
[2019-10-17] MEDS: PANTOPRAZOLE 40MG TABLET PO SCH (05:09)
[2019-10-17] MEDS: LABETALOL 20 MG/4ML SYRINGE IV PRN ×2 (05:10→18:59)
[2019-10-17] MEDS: HYDROCODONE/APAP 7.5/325 MG TAB PO PRN (05:10)
[2019-10-17 05:51] LABS: Absolute Lymphocytes (CBC) 0.5 K/uL (0.7-4.9); Basophils % 0.7 % (0-1.3); Hematocrit 25.9 % (39.6-49.0); MPV 8.6 fL (7.6-11.3); RBC Red Blood Cell Count 3.84 M/uL (4.33-5.43)
[2019-10-17 05:55] LABS: Magnesium 1.9 mg/dL (1.8-2.4); Potassium 3.9 mmol/L (3.5-5.1)
[2019-10-17] MEDS ORDERED: POTASSIUM 25 MEQ EFFERV TAB PO ONE (09:00)
[2019-10-17] MEDS: CYANOCOBALAMIN 1,000 MCG TAB PO SCH (09:18)
[2019-10-17] MEDS: lisinopriL 10 MG TAB PO SCH ×2 (09:18→21:21)
[2019-10-17] MEDS: METOPROLOL TAR 50 MG TAB PO SCH ×2 (09:18→21:20)
[2019-10-17] MEDS: SOD FERRIC GLUC COMPLX/SUCROSE 125 MG in NA CHLORIDE 0.9% 100 ML IV SCH (09:19)
[2019-10-17] MEDS: ENOXAPARIN 40 MG/0.4 ML SQ SCH (09:19)
--- NOTE | 2019-10-17 13:14 | P.PN ---
Subjective Date of Service: 10/17/19 Primary Care Provider: none Chief Complaint: s/p left hip hemiarthroplasty Subjective: Ambulating, Working w/ PT pain controlled and improving Physical Examination - Vital Signs Temperature: 97.2 F Blood Pressure: 180/100 Pulse: 70 Respirations: 19 Pulse Ox (%): 96 - Physical Exam General: Alert, In no apparent distress Musculoskeletal: Other (LLE: dressing with minimal sanguinous drainage; +EHL/FHL /GSC/TA; sensation grossly intact distally) - Studies Medications List Reviewed: Yes Assessment And Plan - Plan Abdoul is a 54 yo male s/p left hip hemiarthroplasty POD#2 -PT to mobilize; WBAT LLE; posterior hip precautions -expected postoperative blood loss anemia on top of chronic anemia; continue to monitor h/h -lovenox for DVT prophylaxis Physician Review Additional Text: .
--- NOTE | 2019-10-17 15:16 | P.PN ---
Subjective Date of Service: 10/17/19 Primary Care Provider: none Chief Complaint: s/p left hip hemiarthroplasty Patient seen and examined at bedside with RN. Chart reviewed. Case discussed with orthopedic surgeon. This morning patient is doing well overall. No complaints to offer. Continues to work with physical therapy here in the hospital. Review of Systems 10-point ROS is otherwise unremarkable Physical Examination - Vital Signs Temperature: 97.2 F Blood Pressure: 180/100 Pulse: 70 Respirations: 19 Pulse Ox (%): 96 - Physical Exam General: Alert, In no apparent distress HEENT: Atraumatic, PERRLA, EOMI Neck: Supple, JVD not distended Respiratory: Clear to auscultation bilaterally, Normal air movement Cardiovascular: Regular rate/rhythm, Normal S1 S2 Gastrointestinal: Normal bowel sounds, No tenderness Musculoskeletal: No tenderness Integumentary: No rashes Neurological: Normal speech, Normal tone, Normal affect Lymphatics: No axilla or inguinal lymphadenopathy - Studies Medications List Reviewed: Yes Assessment And Plan - Plan Assessment and plan left femur fracture status post left hip hemiarthroplasty postop day 2: -status post ORIF of with orthopedic POD 2 -Continue DVT prophylaxis. -Case discussed with orthopedics. -managed services sales consultant report patient without insurance and also denied inpatient rehab. -Patient reports that he has 10 feet of stairs to climb to get to his house. Will continue to work with physical therapy until patient is safe to be discharged. Since the patient will likely not have the support of home health/ physical therapy. Hypertension, uncontrolled: Continue to adjust medication for better blood pressure control. Suspect chronic anemia with iron and B12 deficiency: -patient is currently this post 1 unit of blood. Patient will get 1 more unit of blood. -Will continue with IV iron and B12 supplementation. Suspect GERD with noted hiatal hernia on CT: -CT revealed hiatal hernia. Continue PPI. Obesity, BMI 32: -Will address lifestyle modification education. Disposition: Currently pending clinical improvement. Will need to be discharged home safely and thus will have patient worked with physical therapy here since patient does not have any insurance and will not be able to have support of home health physical therapy when discharged home. Discharge Plan: Home Plan to discharge in: Greater than 2 days - Code Status/Comfort Care Code Status Assessed: Yes Critical Care: No
[2019-10-18 01:18] VITALS: O2SAT 97
[2019-10-18 05:32] LABS: Potassium 3.9 mmol/L (3.5-5.1)
[2019-10-18] MEDS: METOPROLOL TARTRATE 5 MG/5 ML INJ IV PRN (05:38)
[2019-10-18] MEDS ORDERED: HYDRALAZINE HCL 20 MG/ML VIAL IV ONE (06:05)
[2019-10-18] MEDS ORDERED: POTASSIUM CL SA 10 MEQ TAB PO ONE (09:00)
[2019-10-18] MEDS: SOD FERRIC GLUC COMPLX/SUCROSE 125 MG in NA CHLORIDE 0.9% 100 ML IV SCH (09:50)
[2019-10-18] MEDS: HYDROCODONE/APAP 7.5/325 MG TAB PO PRN (09:50)
[2019-10-18] MEDS: CYANOCOBALAMIN 1,000 MCG TAB PO SCH (09:51)
[2019-10-18] MEDS: PANTOPRAZOLE 40MG TABLET PO SCH (09:51)
[2019-10-18] MEDS: ENOXAPARIN 40 MG/0.4 ML SQ SCH (09:52)
[2019-10-18] MEDS: lisinopriL 10 MG TAB PO SCH ×2 (09:52→16:33)
[2019-10-18] MEDS: METOPROLOL TAR 50 MG TAB PO SCH ×2 (09:52→16:32)
--- NOTE | 2019-10-18 11:43 | RAD REPORT ---
EXAM DESCRIPTION: RAD - Hip Left 1 View - 10/18/2019 11:37 am CLINICAL HISTORY: Left hip pain FINDINGS: A left hip prosthesis is in good position. No evidence of loosening. No fracture or dislocation
--- NOTE | 2019-10-18 12:43 | P.PN ---
Subjective Date of Service: 10/18/19 Primary Care Provider: none Chief Complaint: s/p left hip hemiarthroplasty Subjective: Ambulating, Improving, Working w/ PT pain controlled and improving; able to mobilize on stairs; ambulating well with PT Physical Examination - Vital Signs Temperature: 97.0 F Blood Pressure: 180/100 Pulse: 73 Respirations: 16 Pulse Ox (%): 96 - Physical Exam General: Alert, In no apparent distress Musculoskeletal: Other (LLE: incision healing well; no surrounding erythema or active drainage; + mild swelling of hip; EHL/FHL/GSC/TA; sensation grossly intact distally) - Studies Medications List Reviewed: Yes Assessment And Plan - Plan Abdoul is a 54 yo male s/p left hip hemiarthroplasty POD#3 -dressing change today -PT to mobilize; WBAT LLE; posterior hip precautions -lovenox for DVT prophylaxis -ok to d/c home from ortho standpoint -f/u in my clinic in 1-2 weeks for wound check and staple removal Physician Review Additional Text: .
--- NOTE | 2019-10-18 15:13 | P.DS ---
Admission Date: 10/13/19 Discharge Date: 10/18/19 Primary Care Provider: none Disposition: ROUTINE DISCHARGE Discharge Condition: GOOD Reason for Admission: s/p left hip hemiarthroplasty Consultations: Orthopedic - Problems (1) Iron deficiency anemia Current Visit: Yes Status: Acute (2) Left displaced femoral neck fracture Current Visit: Yes Status: Acute (3) Uncontrolled hypertension Current Visit: Yes Status: Acute Brief History of Present Illness: Patient is a 54-year-old gentleman who came to the hospital after falling when getting out of his truck. Patient states that his foot slipped any landed on his hip. He started having pain. He was unable to get himself up. EMS was called he was brought to our hospital. In the ER he was found have a hemoglobin of 8.3. Patient denies any signs of bleeding. Patient also denies any chest pain or shortness of breath. He is very active and he has been in good state of health. He has never had any cardiac issues. She will be admitted to the hospital for possible hip surgery. Will repeat his hemoglobin and if his hemoglobin is stable then we will proceed with surgery. This does not seem like it is an active bleed as hemodynamically he is very stable. His blood pressure is elevated. He will need blood pressure control as well. Hospital Course: Overall during the hospital stay patient remained stable Patient initially was admitted to the hospital after having a fall and had a fracture. Patient had left-sided ORIF with orthopedic. Patient did well overall. Initially patient was referred over to inpatient rehab for placement after a right hip repair. However patient did not qualify as he was doing very well here in the hospital. Patient then ambulated around here in the hospital was doing well was trained with physical therapy regarding stairs and ambulation. When he was able to do that he was then discharged home under stable condition was asked to follow up with orthopedic about 1-2 days post discharge. Vital Signs/Physical Exam: Temp Pulse Resp BP Pulse Ox 97.0 F 73 16 180/100 H 96 10/18/19 12:43 10/18/19 12:43 10/18/19 12:43 10/18/19 12:43 10/18/19 12:43 General: Alert, In no apparent distress HEENT: Atraumatic, PERRLA, EOMI Neck: Supple, JVD not distended Respiratory: Clear to auscultation bilaterally, Normal air movement Cardiovascular: Regular rate/rhythm, Normal S1 S2 Gastrointestinal: Normal bowel sounds, No tenderness Musculoskeletal: No tenderness Integumentary: No rashes Neurological: Normal speech, Normal tone, Normal affect Lymphatics: No axilla or inguinal lymphadenopathy Laboratory Data at Discharge: WBC 6.9 K/uL (4.3-10.9) 10/17/19 05:15 Hgb 8.0 g/dL (13.6-17.9) L 10/17/19 05:15 Hct 25.9 % (39.6-49.0) L 10/17/19 05:15 Plt Count 151 K/uL (152-406) L 10/17/19 05:15 PT 14.2 SECONDS (9.5-12.5) H 10/14/19 02:03 INR 1.21 10/14/19 02:03 APTT 28.7 SECONDS (24.3-36.9) 10/14/19 02:03 Sodium 134 mmol/L (136-145) L 10/18/19 05:03 Potassium 3.9 mmol/L (3.5-5.1) 10/18/19 05:03 BUN 13 mg/dL (7-18) 10/18/19 05:03 Creatinine 0.96 mg/dL (0.55-1.3) 10/18/19 05:03 Glucose 104 mg/dL (74-106) 10/18/19 05:03 Phosphorus 3.4 mg/dL (2.5-4.9) 10/14/19 02:03 Magnesium 1.9 mg/dL (1.8-2.4) 10/17/19 05:15 Total Bilirubin 0.4 mg/dL (0.2-1.0) 10/14/19 02:03 AST 16 U/L (15-37) 10/14/19 02:03 ALT 17 U/L (12-78) 10/14/19 02:03 Alkaline Phosphatase 60 U/L (45-117) 10/14/19 02:03 Home Medications: Aspirin [Aspirin EC 325 MG] 325 mg PO DAILY #30 tablet.dr 10/18/19 Lisinopril [Prinivil*] 20 mg PO BID #60 tab 10/18/19 Metoprolol Tartrate [Lopressor*] 100 mg PO BID #120 tab 10/18/19 New Medications: Aspirin [Aspirin EC 325 MG] 325 mg PO DAILY #30 tablet. Lisinopril [Prinivil*] 20 mg PO BID #60 tab Metoprolol Tartrate [Lopressor*] 100 mg PO BID #120 tab Patient Discharge Instructions: keep dressing clean and dry; may change dressing to left hip as needed with aquacel bandage Diet: Regular Activity: Weight bearing as tolerated Followup: Hossein Hidalgo MD [ACTIVE - CAN ADMIT] - 1-2 Weeks
[2019-10-18 16:35] VITALS: BP 200/100
[2019-10-18 17:18] VITALS: TEMP 97.9
== END 2019-10-18 16:49 | disposition home or self-care (01) | DRG 470 ==
LOC: ER 19:12 → 2ND 22:50
PROVIDERS: ADMIT Hospitalist; ATTEND Family Medicine
PROC: 30233N1 Transfusion of Nonautologous Red Blood Cells into Peripheral Vein, Percutaneous Approach (ICD-10-PCS; 2019-10-14)
PROC: 30233N1 Transfusion of Nonautologous Red Blood Cells into Peripheral Vein, Percutaneous Approach (ICD-10-PCS; 2019-10-14)
PROC: 0SRS0JZ Replacement of Left Hip Joint, Femoral Surface with Synthetic Substitute, Open Approach (ICD-10-PCS; principal; 2019-10-15 09:00)
PROC: 30233N1 Transfusion of Nonautologous Red Blood Cells into Peripheral Vein, Percutaneous Approach (ICD-10-PCS; 2019-10-16)
DX: S72.002A Fracture of unspecified part of neck of left femur, initial encounter for closed fracture (principal); I10 Essential (primary) hypertension; I44.7 Left bundle-branch block, unspecified; K21.9 Gastro-esophageal reflux disease without esophagitis; K44.9 Diaphragmatic hernia without obstruction or gangrene; E66.9 Obesity, unspecified; D50.0 Iron deficiency anemia secondary to blood loss (chronic); D50.9 Iron deficiency anemia, unspecified; D51.9 Vitamin B12 deficiency anemia, unspecified; W18.30XA Fall on same level, unspecified, initial encounter; Y93.01 Activity, walking, marching and hiking; Y92.9 Unspecified place or not applicable; Z68.32 Body mass index [BMI] 32.0-32.9, adult
CPT/HCPCS: 36415; 36430; 71045; 72170; 74177; 80048; 80053; 81003; 82607; 82728; 82746; 83540; 83615; 83735; 84100; 84466; 85014; 85018; 85025; 85044; 85610; 85730; 86850; 86900; 86901; 88305; 88311; 93005; 97110; 97116; 97161; 97530; 99284; J0330; J0360; J0690; J1170; J1650; J1940; J2250; J2704; J2710; J2916; J3010; J3420; J7030; J7120; P9016; Q9967

== ENCOUNTER 2022-04-02 18:05 | Inpatient (IN) | payer OTHER, SELFPAY ==
--- NOTE | 2022-04-02 19:54 | RAD REPORT ---
EXAM DESCRIPTION: Tia Single View04/02/2022 7:13 pm CLINICAL HISTORY: sob COMPARISON: 2019 FINDINGS: Mild bilateral pulmonary opacities Large hiatal hernia Heart is moderately enlarged. There may be small pleural effusions IMPRESSION: These findings probably indicate mild CHF
[2022-04-02 19:55] LABS: Absolute Lymphocytes (CBC) 0.6 K/uL (0.7-4.9); Hematocrit 24.1 % (39.6-49.0); Lymphocytes % 6.8 % (15.3-44.8); MPV 8.5 fL (7.6-11.3); RBC Red Blood Cell Count 3.56 M/uL (4.33-5.43)
[2022-04-02 21:19] LABS: Protime INR 1.95
[2022-04-02 21:22] LABS: Anisocytosis 2+; Blood Morphology Comment NOTED (NOT SEEN); Platelet Estimate ADEQ; White Blood Cell Scan OK (OK)
[2022-04-02 21:23] LABS: Hypochromasia 2+; Ovalocytes SLIGHT; Poikilocytosis 1+; Polychromasia 1+; Target Cells FEW; Teardrop Cell FEW
[2022-04-02 21:33] LABS: Albumin 3.1 g/dL (3.4-5.0); Bilirubin Direct 0.6 mg/dL (0-0.2); Bilirubin Total 1.2 mg/dL (0.2-1.0); Potassium 4.2 mmol/L (3.5-5.1); Protein, Total 6.9 g/dL (6.4-8.2)
[2022-04-02 21:37] LABS: Troponin High Sensitivity 4988.3 pg/mL (<58.9)
--- NOTE | 2022-04-02 21:47 | RAD REPORT ---
EXAM DESCRIPTION: USExtrem Venous W Compress Bil04/02/2022 9:39 pm CLINICAL HISTORY: Leg swelling COMPARISON: none FINDINGS: The common femoral, superficial femoral, popliteal and posterior tibial veins bilaterally are compressible and demonstrate augmentation. Doppler demonstrates good flow. Grayscale, color and spectral analysis performed on all vessels IMPRESSION: No evidence of deep venous thrombosis involving either lower extremity.
--- NOTE | 2022-04-02 22:18 | ER ---
Nurse's Notes [facility] Name: Abdoul Ferguson Age: 56 yrs Sex: Male : 1965 Arrival Date: 04/02/2022 Time: 18:07 Bed 20 Private MD: Diagnosis: Unspecified combined systolic (congestive) and diastolic (congestive) heart failure;Anemia in other chronic diseases classified elsewhere;Subsequent non-ST elevation (NSTEMI) myocardial infarction Presentation: 04/02 18:11 Chief complaint: Patient states: ble swelling, SOB , started a month ago, weeping from iw tops of feet , denies hx of liver problems, does not see the PCP regularly , stopped drinking 3 months ago , used to drink beer daily. Coronavirus screen: At this time, the client does not indicate any symptoms associated with coronavirus-19. Ebola Screen: Patient negative for fever greater than or equal to 101.5 degrees Fahrenheit, and additional compatible Ebola Virus Disease symptoms Patient denies exposure to infectious person. Patient denies travel to an Ebola-affected area in the 21 days before illness onset. No symptoms or risks identified at this time. Initial Sepsis Screen: Does the patient meet any 2 criteria? No. Patient's initial sepsis screen is negative. Does the patient have a suspected source of infection? No. Patient's initial sepsis screen is negative. Risk Assessment: Do you want to hurt yourself or someone else? Patient reports no desire to harm self or others. Onset of symptoms was February 2022. 18:11 Method Of Arrival: Wheelchair iw 18:11 Acuity: BRUNA 3 iw 18:14 Acuity: BRUNA 2 iw Historical: - Allergies: 18:14 No Known Allergies; iw - Home Meds: 18:14 None [Active]; iw - PMHx: 18:14 Hypertensive disorder; iw - PSHx: 18:14 left hip; iw - Immunization history:: Adult Immunizations up to date, Client reports having NOT received the Covid vaccine. - Social history:: Smoking status: Patient denies any tobacco usage or history of. Patient/guardian denies using alcohol, the patient reports quitting approximately 1 years ago. Screenin:49 Abuse screen: Denies threats or abuse. Denies injuries from another. Nutritional ld1 screening: No deficits noted. Tuberculosis screening: No symptoms or risk factors identified. Fall Risk None identified. Assessment: 18:49 General: Appears in no apparent distress. comfortable, Behavior is calm, cooperative, ld1 appropriate for age. Pain: Denies pain. Neuro: Level of Consciousness is awake, alert, obeys commands, Oriented to person, place, time, situation, Appropriate for age. Cardiovascular: Capillary refill < 3 seconds Patient's skin is warm and dry. Rhythm is sinus rhythm. Respiratory: Airway is patent Respiratory effort is even, labored, Breath sounds are clear bilaterally. GI: Abdomen is round distended. : No signs and/or symptoms were reported regarding the genitourinary system. EENT: No signs and/or symptoms were reported regarding the EENT system. Derm: No signs and/or symptoms reported regarding the dermatologic system. Musculoskeletal: No signs and/or symptoms reported regarding the musculoskeletal system. 21:30 General: Appears in no apparent distress. Behavior is appropriate for age. Neuro: Level lp1 of Consciousness is awake, alert, obeys commands. Respiratory: Reports shortness of breath Respiratory effort is even, labored, Noted to have dyspnea with exertion; O2 via NC at 2L for comfort Onset: The symptoms/episode began/occurred gradually, the patient has moderate shortness of breath. : Toney in place to gravity drainage Urine is clear, Swelling noted on scrotum. Derm: Skin is intact, with poor turgor Skin is dry, Skin is normal. 21:30 Cardiovascular: Capillary refill < 3 seconds in bilateral fingers toes Edema pitting to lp1 left midcalf, left ankle, left foot, left toes, right midcalf, right ankle, right foot and right toes weeping noted to left lower leg Rhythm is regular. Vital Signs: 18:11 BP 172 / 110; Pulse 120; Resp 22 S; Temp 98.8; Pulse Ox 100% on R/A; iw 18:49 BP 162 / 117; Pulse 107; Resp 22; Pulse Ox 100% on R/A; ld1 20:42 BP 163 / 109; Pulse 105; Resp 20; Pulse Ox 100% on R/A; ld1 21:00 BP 165 / 112; Pulse 100; Resp 20; Temp 98.4(O); Pulse Ox 100% on 2 lpm NC; ld1 22:00 BP 160 / 103; Pulse 97; Resp 22; Pulse Ox 100% on 2 lpm NC; lp1 22:38 Weight 120.8 kg (M); Height 6 ft. 4 in. (193.04 cm) (R); lp1 22:38 Body Mass Index 32.42 (120.80 kg, 193.04 cm) lp1 ED Course: 18:07 Patient arrived in ED. ds1 18:13 Triage completed. iw 18:14 Arm band placed on. iw 18:19 Jone Garcia PA is PHCP. cp 18:19 Marvin Garcia DO is Attending Physician. cp 18:38 EKG done, by ED staff, reviewed by Jone AGUILA. mb7 18:39 Placed in gown. Bed in low position. Call light in reach. Side rails up X 1. Door mb7 closed. Noise minimized. Warm blanket given. 18:48 COVID-19 SARS RT PCR (Document "Date of Onset" if Symptomatic) Sent. zm 18:49 No provider procedures requiring assistance completed. Missed attempt(s): 20 gauge in ld1 right antecubital area. 19:15 XRAY Chest (1 view) In Process Unspecified. EDMS 20:30 Missed attempt(s): 18 gauge in right antecubital area. ld1 20:45 Missed attempt(s): 22 gauge in right hand. ld1 21:00 Served as a lokie driver during rectal exam. lp1 21:00 Patient admitted, IV remains in place. Accessed 18g Midline to right upper arm by ED lp1 staff. 21:05 Toney cath inserted, using sterile technique, [address], balloon inflated, to ld1 gravity drainage. 21:11 Marcella Herman, MAEGAN is Primary Nurse. ld1 21:41 US Extremity Venous W Compression Franki In Process Unspecified. EDMS 22:17 Dillon Thomas MD is Hospitalizing Provider. cp 22:19 Primary Nurse role handed off by Marcella Herman RN lp1 22:19 Ella Limon, MAEGAN is Primary Nurse. lp1 04/03 00:00 Accessed 20g Midline to Left Upper arm. lp1 04:21 Primary Nurse role handed off by Ella Limon, RN mw2 Administered Medications: 04/02 21:00 Drug: Lasix (furosemide) 40 mg Route: IVP; Site: right upper arm; ld1 23:00 Follow up: Response: No adverse reaction lp1 22:45 Not Given (Not administered per Heparin Protocoll): Heparin (AK-Bolus No thrombolytic) lp1 - HEParin 60 units/kg IVP once; Max 5000 units 22:55 Drug: Metoprolol 50 mg Route: PO; lp1 04/03 00:27 Follow up: Response: No adverse reaction lp1 04/02 23:00 Drug: Heparin (AK Drip) 12 units/kg/hr - (HEParin 79656 units, D5W 500 ml) lp1 {Co-Signature: ld1 (Marcella Herman RN).} Route: IV; Rate: calculated rate; Site: right upper arm; 23:41 Follow up: IV Status: Infusion continued upon admission lp1 04/03 01:52 Drug: Lisinopril 5 mg Route: PO; lp1 Medication: 04/02 18:49 VIS not applicable for this client. ld1 Point of Care Testing: Guaiac: 21:00 Stool Guaiac: Negative; Stool Hemoccult Control: Pass; lp1 Output: 22:42 Urine: 1000ml (Toney); Total: 1000ml. lp1 Outcome: 22:18 Decision to Hospitalize by Provider. cp 23:14 Condition: stable lp1 23:14 Instructed on the need for admit. 23:30 Admitted to ER Hold. Please see [facility] for further documentation. lp1 04/03 10:26 Patient left the ED. aa5 Signatures: Dispatcher [employer] [facility] Jeana Ibarra ds1 Adriana Merida RN RN Rose Osman RN RN aa5 Ella Limon RN RN lp1 Jone Garcia PA PA cp [place] Mondragon 2 Marcella Herman RN RN ld1 Ashely Nuno mbTrinity Arias RN1 Corrections: (The following items were deleted from the chart) 04/02 22:43 22:38 120.8 kg; Height 6 ft. 4 in.; BMI: 32.4; lp1 lp1 23:14 21:30 General: Appears in no apparent distress. Behavior is appropriate for age, lp1 lp1 23:14 21:30 Neuro: Level of Consciousness is awake, alert, obeys commands, lp1 lp1 23: 21:30 Respiratory: Respiratory effort is even, labored, Noted to have dyspnea with lp1 exertion; O2 via NC at 2L for comfort lp1 23: 21:30 : Toney in place to gravity drainage Urine is clear, Swelling noted on scrotum lp1 lp1 23:14 21:30 Derm: Skin is intact, with poor turgor Skin is dry, Skin is normal, lp1 lp1 23:14 21:30 Respiratory: Reports shortness of breath Respiratory effort is even, labored, lp1 Noted to have dyspnea with exertion; O2 via NC at 2L for comfort Onset: The symptoms/episode began/occurred gradually, lp1
--- NOTE | 2022-04-02 22:19 | EDPHYS ---
Physician Documentation [facility] Name: Abdoul Ferguson Age: 56 yrs Sex: Male : 1965 Arrival Date: 04/02/2022 Time: 18:07 Bed 20 Private MD: ED Physician Marvin Garcia HPI: 04/02 18:35 This 56 yrs old Male presents to ER via Wheelchair with complaints of Shortness Of cp Breath. 18:35 The patient has shortness of breath at rest. Onset: The symptoms/episode began/occurred cp 1 month(s) ago. 18:35 Duration: The symptoms are continuous, and are steadily getting worse. Associated signs cp and symptoms: Pertinent positives: dyspnea, Pertinent negatives: chest pain, productive cough, diaphoresis, dizziness, fever. 18:35 The patient's shortness of breath is aggravated by light activity, supine position, cp talking. Historical: - Allergies: 18:14 No Known Allergies; iw - Home Meds: 18:14 None [Active]; iw - PMHx: 18:14 Hypertensive disorder; iw - PSHx: 18:14 left hip; iw - Immunization history:: Adult Immunizations up to date, Client reports having NOT received the Covid vaccine. - Social history:: Smoking status: Patient denies any tobacco usage or history of. Patient/guardian denies using alcohol, the patient reports quitting approximately 1 years ago. ROS: 18:40 Constitutional: Negative for body aches, chills, fever, poor PO intake. cp 18:40 Eyes: Negative for injury, pain, redness, and discharge. cp 18:40 ENT: Negative for drainage from ear(s), ear pain, sore throat, difficulty swallowing, difficulty handling secretions. 18:40 Cardiovascular: Positive for edema, Negative for chest pain, palpitations. 18:40 Respiratory: Positive for orthopnea, shortness of breath, at rest. 18:40 Abdomen/GI: Negative for abdominal pain, nausea, vomiting, and diarrhea. 18:40 Neuro: Negative for altered mental status, headache, syncope, weakness. 18:40 All other systems are negative. Exam: 18:45 ECG was reviewed by the Attending Physician. cp 18:48 Constitutional: The patient appears in no acute distress, alert, awake, cp non-diaphoretic, non-toxic, well developed, well nourished, uncomfortable. 18:48 Head/Face: Normocephalic, atraumatic. cp 18:48 Eyes: Periorbital structures: appear normal, Conjunctiva: normal, no exudate, no injection, Sclera: no appreciated abnormality, Lids and lashes: appear normal, bilaterally. 18:48 ENT: External ear(s): are unremarkable, Nose: is normal, Mouth: Lips: moist, Oral mucosa: moist, Posterior pharynx: Airway: no evidence of obstruction, patent. 18:48 Chest/axilla: Inspection: normal, Palpation: is normal, no crepitus, no tenderness. 18:48 Cardiovascular: Rate: tachycardic, Rhythm: regular, Edema: pedal edema, that is marked, marked leg edema, JVD: is not appreciated. 18:48 Respiratory: the patient does not display signs of respiratory distress, Respirations: labored breathing, that is mild, Breath sounds: decreased breath sounds, that are mild, throughout, stridor, is not appreciated, wheezing: is not appreciated. 18:48 Abdomen/GI: Inspection: abdomen appears normal, Bowel sounds: active, all quadrants, Palpation: abdomen is soft and non-tender, in all quadrants. 18:48 Back: CVA tenderness, is absent. 18:48 : marked scrotal and penile swelling. 18:48 Skin: cellulitis, is not appreciated, rash a moderate rash is noted, on the right leg and left leg. 18:48 Neuro: Orientation: to person, place \\T\\ time. Mentation: is normal. Vital Signs: 18:11 BP 172 / 110; Pulse 120; Resp 22 S; Temp 98.8; Pulse Ox 100% on R/A; iw 18:49 BP 162 / 117; Pulse 107; Resp 22; Pulse Ox 100% on R/A; ld1 20:42 BP 163 / 109; Pulse 105; Resp 20; Pulse Ox 100% on R/A; ld1 21:00 BP 165 / 112; Pulse 100; Resp 20; Temp 98.4(O); Pulse Ox 100% on 2 lpm NC; ld1 22:00 BP 160 / 103; Pulse 97; Resp 22; Pulse Ox 100% on 2 lpm NC; lp1 22:38 Weight 120.8 kg (M); Height 6 ft. 4 in. (193.04 cm) (R); lp1 22:38 Body Mass Index 32.42 (120.80 kg, 193.04 cm) lp1 MDM: 18:29 Patient medically screened. 21:45 Physician consultation: Jonny Valenzuela was contacted at 21:45, regarding admission, to the ICU, patient's condition. 22:15 Data reviewed: vital signs, nurses notes, lab test result(s), EKG, radiologic studies, cp plain films, ultrasound. 22:15 Test interpretation: by ED physician or midlevel provider: ECG, plain radiologic cp studies. 05/ 18:31 Order name: Basic Metabolic Panel; Complete Time: 21:47 cp 05/12 22:10 Interpretation: Normal except: BUN 36; GFR 67. cp 05/12 18:31 Order name: CBC with Diff; Complete Time: 21:47 cp 05/12 20:07 Interpretation: Normal except: RBC 3.56; HGB 7.1; HCT 24.1; MCV 67.5; MCH 19.9; MCHC cp 29.4; RDW 22.4; RICKY% 85.9; LYM% 6.8; LYMA 0.6. 05/12 18:31 Order name: LFT's; Complete Time: 21:47 cp 05/12 22:19 Interpretation: Normal except: AST 42; BILIT 1.2; BILID 0.6; ALB 3.1; GLOB 3.8; A/G 0.8.cp 05/12 18:31 Order name: Magnesium; Complete Time: 21:47 cp 05/12 18:31 Order name: NT PRO-BNP; Complete Time: 21:47 cp 05/12 22:19 Interpretation: Abnormal: NT PRO-BNP 3516. cp 05/12 18:31 Order name: PT-INR; Complete Time: 21:20 cp 05/12 18:31 Order name: Troponin HS; Complete Time: 21:47 cp 05/12 22:10 Interpretation: Abnormal: Troponin HS 4988.3. cp 05/12 18:31 Order name: Blood Culture Adult (2) cp 05/12 18:31 Order name: Procalcitonin; Complete Time: 22:09 cp 05/12 22:09 Interpretation: Reviewed. cp / 18:34 Order name: Lactate; Complete Time: 21:47 EDMS 05/12 18:40 Order name: COVID-19 SARS RT PCR (Document "Date of Onset" if Symptomatic); Complete kj1 Time: 21:20 04/02 21:23 Order name: CBC Smear Scan; Complete Time: 21:47 EDMS 04/02 21:55 Order name: Ptt, Activated; Complete Time: 00:55 la1 04/02 22:10 Order name: Type And Screen cp 04/02 23:09 Order name: Urine Dipstick-Ancillary; Complete Time: 00:55 EDMS 04/03 06:02 Order name: PTT, Activated Partial Thromb; Complete Time: 07:40 EDMS 04/03 06:15 Order name: CBC with Automated Diff; Complete Time: 07:40 EDMS 04/03 06:43 Order name: Comprehensive Metabolic Panel; Complete Time: 07:40 EDMS 04/03 06:43 Order name: Troponin High Sensitivity; Complete Time: 07:40 EDMS 04/03 06:43 Order name: Lipid Profile; Complete Time: 07:40 EDMS 04/03 06:43 Order name: T4 Free; Complete Time: 07:40 EDMS 04/03 06:43 Order name: Magnesium; Complete Time: 07:40 EDMS 04/03 06:43 Order name: Thyroid Stimulating Hormone; Complete Time: 07:40 EDMS 04/03 06:43 Order name: Transferrin Sat/Iron Binding; Complete Time: 07:40 EDMS 04/03 06:43 Order name: Ferritin; Complete Time: 07:40 EDMS 04/03 06:43 Order name: Folic Acid, (Folate); Complete Time: 07:40 EDMS 04/03 06:43 Order name: Vitamin B12 Level; Complete Time: 07:40 EDMS 04/03 08:56 Order name: Hemoglobin EDMS 04/02 18:31 Order name: XRAY Chest (1 view); Complete Time: 19:59 cp 04/02 18:31 Order name: EKG; Complete Time: 18:32 cp 04/02 18:31 Order name: Cardiac monitoring; Complete Time: 18:38 cp 04/02 18:31 Order name: EKG - Nurse/Tech; Complete Time: 18:38 cp 04/02 18:31 Order name: IV Saline Lock; Complete Time: 21:13 cp 04/02 18:31 Order name: Labs collected and sent; Complete Time: 21:13 cp 04/02 18:31 Order name: O2 Per Protocol; Complete Time: 18:49 cp 04/02 18:31 Order name: O2 Sat Monitoring; Complete Time: 18:49 cp 04/02 19:38 Order name: US Extremity Venous W Compression Franki; Complete Time: 21:49 cp 04/02 21:13 Order name: Toney: Verbal order per MINGO Velez; Complete Time: 21:13 ld1 04/02 23:29 Order name: Transfuse; Complete Time: 03:42 cp 04/03 08:56 Order name: Hematocrit EDMS EC:45 Rate is 102 beats/min. Rhythm is regular. IA interval is normal. QRS interval is cp prolonged at 120 msec. QT interval is normal. T waves are Inverted in lead III. Interpreted by me. Reviewed by me. Administered Medications: 21:00 Drug: Lasix (furosemide) 40 mg Route: IVP; Site: right upper arm; ld1 23:00 Follow up: Response: No adverse reaction lp1 22:45 Not Given (Not administered per Heparin Protocoll): Heparin (OH-Bolus No thrombolytic) lp1 - HEParin 60 units/kg IVP once; Max 5000 units 22:55 Drug: Metoprolol 50 mg Route: PO; lp1 04/03 00:27 Follow up: Response: No adverse reaction lp1 04/02 23:00 Drug: Heparin ([place] Drip) 12 units/kg/hr - (HEParin 20356 units, D5W 500 ml) lp1 {Co-Signature: ld1 (Marcella Herman RN).} Route: IV; Rate: calculated rate; Site: right upper arm; 23:41 Follow up: IV Status: Infusion continued upon admission lp1 04/03 01:52 Drug: Lisinopril 5 mg Route: PO; lp1 Point of Care Testing: Guaiac: 04/02 21:00 Stool Guaiac: Negative; Stool Hemoccult Control: Pass; lp1 Disposition: 04/04 05:02 Co-signature as Attending Physician, Marvin EDMONDS was immediately available on-site ms3 in the Emergency Department for consultation in the care of the patient.. Disposition Summary: 04/02/22 22:18 Hospitalization Ordered Hospitalization Status: Inpatient Admission cp Provider: [place], Dillon cp Condition: Fair cp Problem: new cp Symptoms: have improved cp Bed/Room Type: Standard cp Location: Intensive Care Unit(04/03/22 08:20) eb Room Assignment: 4-(04/03/22 08:20) eb Diagnosis - Unspecified combined systolic (congestive) and diastolic (congestive) heart failure cp - Anemia in other chronic diseases classified elsewhere cp - Subsequent non-ST elevation (NSTEMI) myocardial infarction cp Forms: - Medication Reconciliation Form cp - SBAR form cp Signatures: Dispatcher [employer] EDMS Milan Lott MD MD [facility] Adriana Merida RN RN iw Ella Limon RN RN lp1 Jonny Valenzuela, SURVEYOR CHAIN HELPER-C SURVEYOR CHAIN HELPER-Cla1 Jone Garcia PA PA cp Maribel Oliver, RN RN cg Katharine Tilley Marcus, DO DO ms3 Marcella Herman RN RN ld1 Marcella Herman RN ld1 Corrections: (The following items were deleted from the chart) 04/02 21:42 18:32 LACTATE+C.LAB.BRZ ordered. EDSD EDSD 22:22 22:18 Telemetry/MedSurg (Inpatient) cp cg 22:22 22:18 cp cg 04/03 08:20 04/02 22:22 BR ER HOLD cg eb 04/03 08:20 04/02 22:22 ERHOLD- cg eb
--- NOTE | 2022-04-02 22:33 | P.HP ---
Certification for Inpatient Patient admitted to: Inpatient With expected LOS: >2 Midnights Patient will require the following post-hospital care: None Practitioner: I am a practitioner with admitting privileges, knowledge of patient current condition, hospital course, and medical plan of care. Services: Services provided to patient in accordance with Admission requirements found in Title 42 Section 412.3 of the Code of Federal Regulations Patient History Date of Service: 04/02/22 Reason for admission: NSTEMI, CHF History of Present Illness: 56-year-old male with history of anemia, hypertension presents emergency department for lower extremity edema patient ports increased welling of lower extremities duration shortness of breath over the course last 1 to 2 months. He is antihypertensive blood pressure around 160/100 and intermittently tachycardic with heart rate around 100-1 20 sinus tachycardia his labs were significant for elevated troponin 4988.3 elevated BNP 3516 anemia with hemoglobin 7.1 hematocrit 24.1 MCV 67.5 rectal exam was negative Hemoccult negative patient denies any hematemesis, hematochezia or melena. He has been anemic with similar levels as far back as 2019. Discussed case with cardiology who recommended patient be admitted and placed on heparin drip. Will also be transfused 1 unit packed red blood cells now. Allergies No Known Allergies Allergy (Unverified 10/13/19 22:54) Home Medications: Aspirin [Aspirin EC 325 MG] 325 mg PO DAILY #30 tablet. 10/18/19 Metoprolol Tartrate [Lopressor*] 100 mg PO BID #120 tab 10/18/19 lisinopriL [Prinivil*] 20 mg PO BID #60 tab 10/18/19 - Past Medical/Surgical History Diabetic: No -: HTN -: anemia -: Hip surgery Psychosocial/ Personal History: Lives at home, alone - Family History Mother -: Heart disease - Social History Smoking Status: Never smoker Alcohol use: No CD- Drugs: No Caffeine use: Yes Place of Residence: Home Review of Systems 10-point ROS is otherwise unremarkable Respiratory: Shortness of Breath, SOB with Excertion Cardiovascular: Edema Physical Examination - Physical Exam General: Alert, In no apparent distress, Oriented x3 HEENT: Atraumatic, PERRLA, Mucous membr. moist/pink, EOMI, Sclerae nonicteric Neck: Supple, 2+ carotid pulse no bruit, No LAD, Without JVD or thyroid abnormality Respiratory: Normal air movement, Crackles/rales Cardiovascular: Regular rate/rhythm, Normal S1 S2, Edema Capillary refill: <2 Seconds Gastrointestinal: Normal bowel sounds, No tenderness Musculoskeletal: Other (HANNA LE EDEMA) Integumentary: No rashes Neurological: Normal gait, Normal speech, Normal strength at 5/5 x4 extr, Normal tone, Normal affect Lymphatics: No axilla or inguinal lymphadenopathy - Studies Laboratory Data (last 24 hrs) 04/02/22 22:07: APTT 24.3 04/02/22 20:52: PT 21.7 H, INR 1.95 04/02/22 20:52: Sodium 137, Potassium 4.2, BUN 36 H, Creatinine 1.24, Glucose 1 01, Magnesium 2.0, Total Bilirubin 1.2 H, AST 42 H, ALT 64, Alkaline Phosphatase 103 04/02/22 19:30: WBC 8.2, Hgb 7.1 L, Hct 24.1 L, Plt Count 192 Assessment and Plan - Plan Assessment: NSTEMI Suspected new onset CHFunknown EF Microcytic anemia Hypertension Plan: NSTEMI: Cardiology consult in place, continue with heparin drip, aspirin, statin, beta-talia, MILDRED inhibitor. Echocardiogram ordered patient likely to have cardiac catheterization tomorrow. Suspected new onset CHFunknown EF: Continue as above, echocardiogram ordered and cardiology consulted. Continue with Lasix as well. Microcytic anemia: Patient with chronic anemia stool brown, guaiac negative denies hematemesis, hematochezia or melena. Will transfuse 1 unit now obtain posttransfusion H&H. Iron/anemia studies pending Hypertension: Have initiated therapy with carvedilol, lisinopril titrate dose to effect appreciate further input from cardiology. DVT PPX: Heparin drip Code status: Full code Discharge Plan: Home Plan to discharge in: 72 Hours - Advance Directives Does patient have a Living Will: No Does patient have a Durable POA for Healthcare: No - Code Status/Comfort Care Code Status Assessed: Yes (Full code) Critical Care: No Time Spent Managing Pts Care (In Minutes): 55
[2022-04-02] MEDS ORDERED: HEPARIN/D5W 25,000 UNIT/500 ML BAG IV ONE (22:47)
[2022-04-02] MEDS ORDERED: METOPROLOL TAR 50 MG TAB ONE (22:50)
[2022-04-02 23:08] LABS: Urine Blood 2+ (Negative); Urine Glucose Negative (Negative); Urine Protein Negative (Negative); Urine Specific Gravity 1.015 (1.005-1.030)
[2022-04-02] MEDS ORDERED: HEPARIN/D5W 25,000 UNIT/500 ML BAG IV SCH (23:17)
[2022-04-02] MEDS ORDERED: SODIUM CHLORIDE 0.9% 10ML INJ IV PRN (23:17)
[2022-04-02] MEDS ORDERED: ONDANSETRON 4 MG/2 ML VIAL IV PRN (23:17)
[2022-04-03] MEDS ORDERED: lisinopriL 5 MG TAB ONE ×2 (01:24→10:07)
[2022-04-03] MEDS ORDERED: NA CHLORIDE 0.9% 250 ML ONE ×2 (02:06→11:19)
[2022-04-03] MEDS ORDERED: DIPHENHYDRAMINE 50 MG/ML VIAL ONE (02:09)
[2022-04-03] MEDS ORDERED: ACETAMINOPHEN 325 MG TABLET ONE (02:09)
[2022-04-03] MEDS ORDERED: ACETAMINOPHEN 325 MG TABLET PO ONE (02:10)
[2022-04-03] MEDS ORDERED: DIPHENHYDRAMINE 50 MG/ML VIAL IV ONE (02:10)
[2022-04-03] MEDS ORDERED: FUROSEMIDE 40 MG/4 ML VIAL IV ONE ×2 (05:00→08:53)
[2022-04-03] MEDS ORDERED: FUROSEMIDE 40 MG/4 ML VIAL ONE (05:55)
[2022-04-03 05:57] LABS: Absolute Lymphocytes (CBC) 0.4 K/uL (0.7-4.9); Hematocrit 21.6 % (39.6-49.0); Lymphocytes % 5.7 % (15.3-44.8); MPV 8.3 fL (7.6-11.3)
[2022-04-03 06:37] LABS: Albumin 2.9 g/dL (3.4-5.0); Bilirubin Total 1.5 mg/dL (0.2-1.0); Ferritin 23.1 ng/mL (26-388); Folic Acid, (Folate) 8.3 ng/mL (3.1-17.5); Magnesium 1.8 mg/dL (1.8-2.4); Potassium 3.7 mmol/L (3.5-5.1); Protein, Total 6.2 g/dL (6.4-8.2); Thyroid Stimulating Hormone 2.28 uIU/mL (0.360-3.740)
[2022-04-03 06:43] LABS: Troponin High Sensitivity 4716.4 pg/mL (<58.9)
[2022-04-03 08:50] LABS: Hematocrit 22.1 % (39.6-49.0)
[2022-04-03] MEDS ORDERED: FUROSEMIDE 40 MG/4 ML VIAL IV SCH (08:53)
[2022-04-03] MEDS: lisinopriL 5 MG TAB PO SCH (09:00)
[2022-04-03] MEDS: carvediloL 6.25 MG TAB PO SCH ×2 (09:00→21:26)
[2022-04-03] MEDS: FUROSEMIDE 40 MG/4 ML VIAL IV SCH ×2 (09:00→16:35)
[2022-04-03] MEDS: ASPIRIN EC 81 MG TAB PO SCH (09:00)
[2022-04-03] MEDS ORDERED: PANTOPRAZOLE 40 MG INJ IVP SCH (09:00)
[2022-04-03] MEDS ORDERED: carvediloL 6.25 MG TAB ONE (10:07)
[2022-04-03] MEDS ORDERED: PANTOPRAZOLE 40 MG INJ ONE (10:08)
[2022-04-03] MEDS ORDERED: LIDOCAINE 1% MPF 30 ML VIAL ONE (12:26)
[2022-04-03] MEDS ORDERED: HEPA 1000U/500MLS 2,000 UNIT/1,000 ML BAG IV ONE (12:26)
[2022-04-03] MEDS ORDERED: MIDAZOLAM HCL 2 MG/2 ML INJ ONE (12:31)
[2022-04-03] MEDS ORDERED: HEPARIN 5000 UNIT/ML 1 ML VIAL ONE (12:31)
[2022-04-03] MEDS ORDERED: FENTANYL CITR 100 MCG/2 ML ONE (12:31)
[2022-04-03] MEDS ORDERED: VERAPAMIL HCL 10 MG/4 ML VIAL IV ONE (12:32)
[2022-04-03] MEDS ORDERED: NITROGLYCERIN 100 MCG/ML SYR (for cath lab use only) IV ONE (12:32)
[2022-04-03] MEDS ORDERED: HEPARIN 10,000 UNIT/10 ML VIAL IV ONE (12:32)
[2022-04-03] MEDS ORDERED: ASPIRIN 325 MG TAB ONE (12:51)
[2022-04-03] MEDS ORDERED: ATROPINE SULF 1 MG/10 ML SYR IV ONE (12:51)
[2022-04-03] MEDS ORDERED: CLOPIDOGREL 75 MG TABLET ONE (12:51)
[2022-04-03] MEDS ORDERED: TICAGRELOR 90 MG TABLET PO ONE (12:51)
[2022-04-03] MEDS ORDERED: NA CHLORIDE 0.9% 500 ML ONE (13:27)
--- NOTE | 2022-04-03 13:35 | ECHO ---
HEIGHT: 6 ft 4 in WEIGHT: 266 lb 5.094 oz DATE OF STUDY: 04/03/[address]: Jonny Valenzuela NP 2-DIMENSIONAL: YES M.MODE: YES DOPPLER: YES COLOR FLOW: YES TDS: NO PORTABLE: YES DEFINITY: NO BUBBLE STUDY: NO DIAGNOSIS: NSTEMI/CONGESTIVE HEART FAILURE CARDIAC HISTORY: CATHERIZATION: YES SURGERY: NO PROSTHETIC VALVE: NO PACEMAKER: NO MEASUREMENTS (cm) DIASTOLIC (NORMALS) SYSTOLIC (NORMALS) IVSd 1.2 (0.6-1.2) LA Diam 4.1 (1.9-4.0) LVEF 41% LVIDd 6.5 (3.5-5.7) LVIDs 5.2 (2.0-3.5) %FS 21% LVPWd 1.5 (0.6-1.2) Ao Diam 3.2 (2.0-3.7) 2 DIMENSIONAL ASSESSMENT: RIGHT ATRIUM: NORMAL LEFT ATRIUM: NORMAL RIGHT VENTRICLE: NORMAL LEFT VENTRICLE: DEPRESSED FUNCTION TRICUSPID VALVE: MILD TRICUSPID REGURGITATION MITRAL VALVE: MILD MITRAL REGURGITATION PULMONIC VALVE: MILD PULMONIC INSUFFICIENCY AORTIC VALVE: MILD AORTIC INSUFFICIENCY PERICARDIAL EFFUSION: TRACE AORTIC ROOT: NORMAL LEFT VENTRICULAR WALL MOTION: INFERIOR WALL HYPOKINESIS. DOPPLER/COLOR FLOW: SEE BELOW. COMMENTS: MILDLY DEPRESSED LEFT VENTRICULAR EJECTION FRACTION 40-45%. MILD MITRAL AND TRICUSPID REGURGITATION. MILD PULMONIC AND AORTIC INSUFFICIENCY. MODERATE DIASTOLIC DYSFUNCTION. INFERIOR WALL HYPOKINESIS. TECHNOLOGIST: HUMBLE SY
--- NOTE | 2022-04-03 14:10 | P.PN ---
Subjective Date of Service: 04/03/22 Chief Complaint: NSTEMI, CHF Subjective: No new changes, Improving Physical Examination - Vital Signs Temperature: 96.9 F Blood Pressure: 138/83 Pulse: 71 Respirations: 17 Pulse Ox (%): 98 - Physical Exam General: Alert, Moderate distress HEENT: Atraumatic, Normocephalic Neck: Supple Respiratory: Diminished Cardiovascular: Regular rate/rhythm, Normal S1 S2, Abnormal S3 Gastrointestinal: Soft and benign Musculoskeletal: Swelling Neurological: Normal speech - Studies Laboratory Data (last 24 hrs) 04/02/22 22:07: APTT 24.3 04/02/22 20:52: PT 21.7 H, INR 1.95 04/02/22 20:52: Sodium 137, Potassium 4.2, BUN 36 H, Creatinine 1.24, Glucose 101, Magnesium 2.0, Total Bilirubin 1.2 H, AST 42 H, ALT 64, Alkaline Phosphatase 103 04/02/22 19:30: WBC 8.2, Hgb 7.1 L, Hct 24.1 L, Plt Count 192 Assessment And Plan - Plan NSTEMI: Presently on heparin drip for ACS management. Cardiology following for management recommendation. Will continue aspirin therapy and statin therapy. Suspected new onset CHFunknown EF: Echocardiogram to assess cardiac function pending. Will continue Lasix at 40 mg IV every 12. Will monitor input and output closely. Cardiology following for management recommendation. We will have him on 1.2 L fluid restriction in 24 hours. Low-sodium diet to be continued. Microcytic anemia: Trend down of hemoglobin noted despite packed red cell transfusion. Will keep hemoglobin in the range of 9 to 10 g per DL in view of active ACS. we will transfuse 2 units of PRC for this purpose. Will continue to monitor hemoglobin level on daily basis. Hypertension: Have initiated therapy with carvedilol, lisinopril doses. Will follow closely. DVT PPX: Heparin drip to be continued for ACS management Code status: Full code
[2022-04-03 16:52] LABS: Hematocrit 25.6 % (39.6-49.0)
--- NOTE | 2022-04-03 16:58 | RAD REPORT ---
EXAM DESCRIPTION: CT - Head Brain Wo Cont - 04/03/2022 4:45 pm CLINICAL HISTORY: slurred garbled speech x 1 week Headache, drowsiness, CVA symptomology COMPARISON: No comparisons TECHNIQUE: All CT scans are performed using dose optimization technique as appropriate and may inclu de automated exposure control or mA/KV adjustment according to patient size. FINDINGS: No intracranial hemorrhage, hydrocephalus or extra-axial fluid collection.Small area of gl iosis is seen right cerebellar hemisphere anteriorly.No areas of brain edema or evidence of midline s hift. The paranasal sinuses and mastoids are clear. The calvarium is intact. IMPRESSION: No acute intracranial abnormality.
[2022-04-03] MEDS ORDERED: POTASSIUM CL SA 10 MEQ TAB PO ONE (21:00)
[2022-04-03] MEDS ORDERED: MAGNESIUM SULFATE 1 gm IVPB 1 GM/100 ML BAG IV ONE (21:00)
[2022-04-03 23:12] VITALS: BMI 32.3
[2022-04-04] MEDS ORDERED: NA CHLORIDE 0.9% 250 ML IV SCH (01:00)
--- NOTE | 2022-04-04 05:25 | OP ---
Date of Procedure: 04/03/2022 Surgeon: LOUISE GOLDSTEIN Procedure Performed: 1.Selective coronary angiogram. 2.Percutaneous coronary intervention, totally occluded proximal left circumflex the culprit for the AK used 2.5 x 60 mm Synergy drug-eluting stent access. 3.Right radial artery 6-Japanese closed with TR band. Indication: Non-ST elevation myocardial infarction. Complications: None. Bleeding: Less than 10 mL. Moderate sedation medications were Versed and fentanyl. Anesthesia: Total sedation time was 35 minutes. Description Of Procedure: After risks, benefits, symptoms were explained, the patient agreed to proc eed and signed informed consent. Patient was brought into the cardiac catheterization laboratory, pr epped and draped in usual sterile fashion. We accessed right radial artery using pediatric micropunc ture kit, placed 6-Japanese slender sheath and took 5-Japanese tiger 4.0 catheter in the aortic root, eng aged left main, right coronary artery, took standard views. Then gave systemic heparin, Brilinta 180 , and aspirin 325, and took XB 3.5 guide into the aortic root, engaged left main and took short run-t hrough wire into the left main and left circ across the 100% occlusion easily suggestive of fresh occ lusion and the culprit for the AK. Lesion was pre-dilated and placed 2.5 x 60 mm Synergy drug-elutin g stent with good results. I then removed the wire and the guide and the sheath, placed TR band with good hemostasis. Findings: 1.Left main is very large and normal. 2.LAD; proximal diffuse stent 20% and then there is a diagonal 1 branch that takes off and it is vandana y large vessel as large as the LAD. LAD itself has mid 40% stenosis and focal 50% to 60%, then diffu se 50% stenosis, and then the wraps around the apex and gives collaterals to the RCA. The diagonal b ranch is very large and then it bifurcates to 2 branches at the area of bifurcation to 70% stenosis a nd then 80% on one of the branches ostially. With the left circumflex proximal 100% status post succ essful PCI to the small vessel. 3.RCA; large and dominant aneurysmal in the proximal portion, then becomes normal, then is aneurysma l again in the midportion, then luminal irregularities and distally diffuse 10% to 20%, and then the PDA when it takes off is about 50% to 60% stenosis and there is another branch that is very small com es of if it has about 80% stenosis. The PLV has luminal irregularities. Conclusion: 1.Totally occluded left circumflex, status post successful PCI as above is the culprit for the AK. 2.Moderate-to -severe coronary artery disease as outlined above. Plan: Switch him to Plavix tomorrow and aspirin, high-dose statin, and aggressive risk factor modifi cation for now. SR/MODL Voice ID: [id number] Report ID: [id number]
[2022-04-04 06:16] LABS: Albumin 2.5 g/dL (3.4-5.0); Bilirubin Total 1.7 mg/dL (0.2-1.0); Magnesium 1.8 mg/dL (1.8-2.4); Protein, Total 5.8 g/dL (6.4-8.2)
[2022-04-04 06:25] LABS: Absolute Lymphocytes (CBC) 0.4 K/uL (0.7-4.9); Hematocrit 28.1 % (39.6-49.0); Lymphocytes % 4.4 % (15.3-44.8); MPV 8.4 fL (7.6-11.3); RBC Red Blood Cell Count 4.04 M/uL (4.33-5.43)
[2022-04-04 07:14] LABS: Anisocytosis 2+; Blood Morphology Comment NOTED (NOT SEEN); Macrocytosis 1+; Platelet Estimate ADEQ; White Blood Cell Scan OK (OK)
[2022-04-04 07:15] LABS: ACANTHOCYTE 1+; Hypochromasia 1+; Platelets, Giant 1+; Poikilocytosis 2+; Target Cells 1+; Teardrop Cell 1+
[2022-04-04 07:55] LABS: Hematocrit 26.4 % (39.6-49.0)
--- NOTE | 2022-04-04 08:25 | P.PN ---
Subjective Date of Service: 04/04/22 Chief Complaint: NSTEMI, CHF Subjective: No new changes, Improving Physical Examination - Vital Signs Temperature: 97.2 F Blood Pressure: 145/96 Pulse: 70 Respirations: 18 Pulse Ox (%): 96 - Physical Exam General: Alert, Oriented x3 HEENT: Atraumatic, Normocephalic Neck: Supple Respiratory: Normal air movement Cardiovascular: Regular rate/rhythm, Normal S1 S2 Gastrointestinal: Soft and benign Musculoskeletal: Swelling Neurological: Normal speech Assessment And Plan - Plan NSTEMI: Had left heart cath with circumflex artery stent placement. Feels better. Less short of breath. We will continue to follow management as per cardiology. Suspected new onset CHFunknown EF: Improving volume status. Will continue Lasix at 40 mg IV every 12. Will monitor input and output closely. Cardiology following for management recommendation. We will have him on 1.2 L fluid restriction in 24 hours. Low-sodium diet to be continued. Microcytic anemia: Latest hemoglobin is 8.8. Will follow closely. Will continue to monitor hemoglobin level on daily basis. Hypertension: Blood pressure is stable. We will continue carvedilol and lisinopril doses. Cardiology following. DVT PPX: Lovenox for DVT prophylaxis. Code status: Full code
[2022-04-04] MEDS: carvediloL 6.25 MG TAB PO SCH ×2 (09:21→20:41)
[2022-04-04] MEDS: ASPIRIN EC 81 MG TAB PO SCH (09:21)
[2022-04-04] MEDS: lisinopriL 5 MG TAB PO SCH (09:21)
[2022-04-04] MEDS: FUROSEMIDE 40 MG/4 ML VIAL IV SCH ×2 (09:22→17:51)
[2022-04-04] MEDS: PANTOPRAZOLE 40MG TABLET PO SCH (09:29)
--- NOTE | 2022-04-04 14:54 | EKG ---
Test Date: 2022-04-02 Test Time: 18:38:04 Printing Agent: MB MEASUREMENT RESULTS: Intervals: Rate: 102 OK: 184 QRSD: 120 QT: 350 QTc: 456 [place]: P: 2 OK: 184 QRS: 90 T: 14 INTERPRETIVE STATEMENTS: Sinus tachycardia Rightward axis Nonspecific intraventricular conduction delay Borderline ECG Compared to ECG 10/13/2019 21:10:34 Right-axis deviation now present Intraventricular conduction delay now present Sinus rhythm no longer present T-wave abnormality no longer present Possible ischemia no longer present Electronically Signed On 04-04-22 14:53:18 CDT by Rupert Mathew
--- NOTE | 2022-04-04 22:04 | CON ---
Date of Consultation: 04/03/2022 Reason For Consultation: Elevated troponin. History Of Present Illness: This 56-year-old male with history of anemia and hypertension presented with lower extremity edema, increased shortness of breath, orthopnea, signs of heart failure. Denies having any chest pain. Found to be anemic. Denies having any bleeding. Past Medical History: Hypertension and anemia. Medications: Refer to reconciliation sheet for detailed list. Allergies: FEXOFENADINE. Family History: No premature coronary artery disease or cancer. Social History: Does not smoke or drink. Does not use any drugs. Review of Systems: All systems reviewed and were negative except as mentioned in HPI. Physical Examination: Vital Signs: Reviewed. Head and Neck: Pupils are equal, reactive to light. Intact eye movements. No JVD. No cervical lym phadenopathy. Neck supple. Thyroid is not enlarged. Lungs: Clear to auscultation bilaterally. No rhonchi, rales, or crackles. No accessory muscle use. Heart: Regular rate and rhythm. No extra sounds. Abdomen: Soft, nontender. Bowel sounds positive. No organomegaly. No masses or hernia. No rigidi ty or rebound. Extremities: No clubbing or cyanosis. Intact pulses. Skin: No rashes. Neurologic: Alert, awake. No acute focal deficits appreciated. Lymph Nodes: No cervical lymphadenopathy. Laboratory Data: Labs were reviewed. Assessment And Recommendation: 1.Non-ST elevation myocardial infarction. Keep n.p.o. Planned for coronary angiogram. Continue as pirin and further recommendation post angiogram. 2.Mild systolic congestive heart failure and borderline low ejection fraction with non-ST elevation myocardial infarction. Plan for coronary angiogram as above. SR/MODL Voice ID: [id number] Report ID: [id number]
[2022-04-05] MEDS: PANTOPRAZOLE 40MG TABLET PO SCH (06:29)
[2022-04-05 08:17] LABS: Albumin 2.4 g/dL (3.4-5.0); Bilirubin Total 1.2 mg/dL (0.2-1.0); Magnesium 1.7 mg/dL (1.8-2.4); Potassium 3.4 mmol/L (3.5-5.1); Protein, Total 5.6 g/dL (6.4-8.2)
[2022-04-05 08:28] LABS: Absolute Lymphocytes (CBC) 0.5 K/uL (0.7-4.9); Hematocrit 26.1 % (39.6-49.0); Lymphocytes % 7.6 % (15.3-44.8); MPV 8.2 fL (7.6-11.3); RBC Red Blood Cell Count 3.73 M/uL (4.33-5.43)
[2022-04-05] MEDS: FUROSEMIDE 40 MG/4 ML VIAL IV SCH ×2 (11:14→17:22)
[2022-04-05] MEDS: carvediloL 6.25 MG TAB PO SCH (11:15)
[2022-04-05] MEDS: ASPIRIN EC 81 MG TAB PO SCH (11:15)
[2022-04-05] MEDS: lisinopriL 5 MG TAB PO SCH (11:15)
[2022-04-05] MEDS ORDERED: CLOPIDOGREL 75 MG TABLET PO ONE (13:52)
[2022-04-05] MEDS ORDERED: Magnesium Sulfate 2gm IVPB 2 G/50 ML BAG IV ONE (14:18)
[2022-04-05] MEDS ORDERED: KCL 20 MEQ/100 mL IVPB 20 MEQ/100 ML BAG IV ONE (15:00)
--- NOTE | 2022-04-05 15:40 | P.PN ---
Subjective Date of Service: 04/05/22 Chief Complaint: NSTEMI, CHF Subjective: No new changes, Improving Physical Examination - Vital Signs Temperature: 97.5 F Blood Pressure: 150/85 Pulse: 78 Respirations: 16 Pulse Ox (%): 98 - Physical Exam General: Alert, Oriented x3 HEENT: Atraumatic, Normocephalic Neck: Supple Respiratory: Normal air movement Cardiovascular: Regular rate/rhythm, Normal S1 S2 Gastrointestinal: Soft and benign Musculoskeletal: No swelling Neurological: Normal speech, Normal strength at 5/5 x4 extr Assessment And Plan - Plan NSTEMI: Had left heart cath with circumflex artery stent placement. Feels better. Less short of breath. We will continue to follow management as per cardiology. Dual antiplatelet medications to be continued. Suspected new onset CHFunknown EF: Improving volume status. Will continue Lasix at 40 mg IV every 12. Will monitor input and output closely. Cardiology following for management recommendation. We will have him on 1.2 L fluid restriction in 24 hours. Low-sodium diet to be continued. Microcytic anemia: Latest hemoglobin is 8.8. Will follow closely. Will continue to monitor hemoglobin level on daily basis. Hypertension: Blood pressure is stable. We will continue carvedilol and lisinopril doses. Cardiology following. Hypokalemia: Low potassium noted at 3.4. we will replete and follow. Hypomagnesemia: Low magnesium noted at 1.7. we will replete and follow. DVT PPX: Lovenox for DVT prophylaxis. Code status: Full code
[2022-04-05] MEDS: carvediloL 12.5 MG TAB PO SCH (17:22)
[2022-04-06] MEDS: PANTOPRAZOLE 40MG TABLET PO SCH (05:20)
[2022-04-06] MEDS: carvediloL 12.5 MG TAB PO SCH ×2 (05:20→19:57)
[2022-04-06 05:53] LABS: Magnesium 1.7 mg/dL (1.8-2.4)
[2022-04-06] MEDS ORDERED: MAGNESIUM SULFATE 1 gm IVPB 1 GM/100 ML BAG IV ONE (08:02)
[2022-04-06] MEDS ORDERED: POTASSIUM 25 MEQ EFFERV TAB PO ONE (08:04)
[2022-04-06] MEDS: CLOPIDOGREL 75 MG TABLET PO SCH (08:45)
[2022-04-06] MEDS: lisinopriL 5 MG TAB PO SCH (08:46)
[2022-04-06] MEDS: FUROSEMIDE 40 MG/4 ML VIAL IV SCH ×2 (08:46→19:56)
[2022-04-06] MEDS: ASPIRIN EC 81 MG TAB PO SCH (08:46)
--- NOTE | 2022-04-06 14:29 | PN ---
Date of Progress Note: 04/06/2022 Mr. Ferguson is a 56-year-old, underwent emergency heart catheterization, has moderate to severe nava ry artery disease, status post circumflex stent. From a cardiac standpoint, he is doing well. No ch est pain. No shortness of breath. Vital signs stable, afebrile. Right wrist entry site is intact. His chest is clear. Leg is still showing significant edema. He is undergoing physical therapy. Co ntinue present regimen for CAD, hypertension, anemia, and edema. I will discuss the case further wit shakir Krishna. No changes in medical therapy at this point. NB/MODL Voice ID: [id number] Report ID: [id number]
[2022-04-06] MEDS ORDERED: POTASSIUM CL SA 10 MEQ TAB PO ONE (19:38)
[2022-04-07 04:29] LABS: Magnesium 1.8 mg/dL (1.8-2.4); Potassium 3.3 mmol/L (3.5-5.1)
[2022-04-07] MEDS ORDERED: MAGNESIUM SULFATE 1 gm IVPB 1 GM/100 ML BAG IV ONE (04:36)
[2022-04-07] MEDS ORDERED: POTASSIUM CL SA 10 MEQ TAB PO ONE (06:00)
[2022-04-07] MEDS: PANTOPRAZOLE 40MG TABLET PO SCH (06:03)
[2022-04-07] MEDS: carvediloL 12.5 MG TAB PO SCH ×2 (06:04→17:56)
[2022-04-07] MEDS: CLOPIDOGREL 75 MG TABLET PO SCH (08:36)
[2022-04-07] MEDS: ASPIRIN EC 81 MG TAB PO SCH (08:36)
[2022-04-07] MEDS: lisinopriL 5 MG TAB PO SCH (08:36)
--- NOTE | 2022-04-07 08:36 | RAD REPORT ---
EXAM DESCRIPTION: CT - Head angio - 04/07/2022 7:25 am CLINICAL HISTORY: aphasia TECHNIQUE: During dynamic enhancement using nonionic IV contrast, axial 1 millimeter thick images of the head were obtained. Sagittal and axial reconstruction images were generated using MIP technique and reviewed. Axial 5 mm noncontrast images also obtained of the hand. All CT scans are performed using dose optimization technique as appropriate and may include automated exposure control or mA/KV adjustment according to patient size. COMPARISON: CT head 04/03/2022 FINDINGS: Noncontrast images show no intracranial hemorrhage. No cortical edema, sulcal effacement, mass effect or midline shift. Volume loss changes are present slightly greater than would be expecte d in a patient this age. Ventricles are in proportion to the volume loss. Diminished attenuation in t he right cerebellum is likely old CVA stable from prior imaging. Brainstem chronic ischemic changes a re evident. Chronic ischemic changes are present in the cerebral white matter. There is a 13 millimet er area of decreased attenuation in the posterior left frontal lobe white matter new from prior imagi ng. No aneurysm or vascular malformation identified. Major venous sinuses are patent. No stenosis, named branch occlusion, vasculitis or other significant vascular finding identifiable. Anterior communicating artery is present. Vertebrobasilar tortuosity noted without focal component. IMPRESSION: CT angio head examination shows no named branch occlusion, focal stenosis, vasculitis o r other significant vascular finding. Noncontrast images show 13 mm sized subacute nonhemorrhagic infarction in the left posterior frontal lobe white matter.
[2022-04-07] MEDS: MEDIHONEY 44 ML TOPICAL TUBE TOP SCH (08:39)
[2022-04-07] MEDS: FUROSEMIDE 40 MG/4 ML VIAL IV SCH ×2 (08:39→17:56)
--- NOTE | 2022-04-07 10:56 | P.PN ---
Date of Service: 04/07/22 Subjective Subjective: No new changes, Improving Physical Examination - Vital Signs reviewed - Physical Exam General: Alert, Oriented x3 Respiratory: Normal air movement Cardiovascular: Regular rate/rhythm, Normal S1 S2 Gastrointestinal: Soft and benign Musculoskeletal: No swelling Neurological: Normal speech, Normal strength at 5/5 x4 extr Assessment And Plan - Plan NSTEMI: Status post left heart catheterization with stent placement. Continue with cardiac meds Suspected new onset CHFunknown EF: Continue with diuresing; systolic heart failure; acute; continue with diuresing Acute CVA MRI of the brain as an outpt; repeat CTA; Antiplatelet and statin therapy; Physical therapy and speech therapy consultation; DVT prophylaxis Microcytic anemia: Hemoglobin stable Hypertension: Blood pressure is stable. We will continue carvedilol and lisinopril doses. Cardiology following. Hypokalemia: Replace potassium per diuresing Hypomagnesemia: Low magnesium noted at 1.7. we will replete and follow. DVT PPX: Lovenox for DVT prophylaxis. Code status: Full code
[2022-04-08 04:30] VITALS: O2SAT 98
[2022-04-08] MEDS: carvediloL 12.5 MG TAB PO SCH (06:03)
[2022-04-08] MEDS: PANTOPRAZOLE 40MG TABLET PO SCH (06:03)
[2022-04-08 06:23] LABS: Albumin 2.4 g/dL (3.4-5.0); Potassium 4.2 mmol/L (3.5-5.1); Protein, Total 6.1 g/dL (6.4-8.2)
[2022-04-08] MEDS: MEDIHONEY 44 ML TOPICAL TUBE TOP SCH ×2 (09:00→10:14)
[2022-04-08] MEDS: ASPIRIN EC 81 MG TAB PO SCH (10:15)
[2022-04-08] MEDS: FUROSEMIDE 40 MG/4 ML VIAL IV SCH (10:15)
[2022-04-08] MEDS: lisinopriL 5 MG TAB PO SCH (10:15)
[2022-04-08] MEDS: CLOPIDOGREL 75 MG TABLET PO SCH (10:16)
[2022-04-08 12:34] VITALS: TEMP 97.5
[2022-04-08 16:55] VITALS: BP 150/90
== END 2022-04-08 14:50 | disposition home or self-care (01) | DRG 246 ==
LOC: ER 18:05 → ERHOLD 22:15 → 3RD-ICU 04-03 09:30 → 2ND 04-03 22:38
PROVIDERS: ADMIT Internal Medicine Nephrology; ATTEND Internal Medicine Nephrology
PROC: 027034Z Dilation of Coronary Artery, One Artery with Drug-eluting Intraluminal Device, Percutaneous Approach (ICD-10-PCS; principal; 2022-04-03)
PROC: B2011ZZ Plain Radiography of Multiple Coronary Arteries using Low Osmolar Contrast (ICD-10-PCS; 2022-04-03)
PROC: 30233N1 Transfusion of Nonautologous Red Blood Cells into Peripheral Vein, Percutaneous Approach (ICD-10-PCS; 2022-04-03)
DX: I21.4 Non-ST elevation (NSTEMI) myocardial infarction (principal); I50.21 Acute systolic (congestive) heart failure; I63.9 Cerebral infarction, unspecified; D50.9 Iron deficiency anemia, unspecified; I11.0 Hypertensive heart disease with heart failure; E87.6 Hypokalemia; E83.42 Hypomagnesemia; Z20.822 Contact with and (suspected) exposure to COVID-19; Z79.82 Long term (current) use of aspirin
CPT/HCPCS: 36415; 36430; 51702; 70450; 70496; 71045; 76937; 80048; 80053; 80061; 80076; 81003; 82607; 82728; 82746; 83540; 83605; 83735; 83880; 84132; 84145; 84439; 84443; 84466; 84484; 85014; 85018; 85025; 85610; 85730; 86850; 86900; 86901; 87040; 92523; 92928; 93005; 93306; 93454; 93970; 96365; 96375; 97110; 97116; 97161; 97530; 99251; 99285; C1725; C1893; C9113; J1200; J1644; J1940; J2250; J3010; J3475; J3480; J7040; J7050; P9016; Q9967; U0003